=== PATIENT | male | born 1965 | race Caucasian/White ===

== ENCOUNTER 2020-06-04 21:26 | Observation (INO) | payer SELFPAY ==
[~2020-06-04] VITALS: Ht 177.8 cm; Wt 74.5 kg
--- NOTE | 2020-06-04 22:48 | PHYS DOC ---
Past Medical History Past Medical History: No Pertinent History Past Surgical History: Other Additional Past Surgical Histo: BROKEN NECK Smoking Status: Current Every Day Smoker Alcohol Use: None General Adult EDM: Chief Complaint: HAND PROBLEM HPI: HPI: Patient is a 54 year old male who presents with 4-day history of pain and swelling of the ring finger of the left upper extremity. Patient states that it started out as a pimple on the posterior surface of the hand. He squeezed it and the next day started to swell. Now he is having limited range of motion, severe pain, swelling, redness and drainage from that area. Patient denied any fever, chills did complain of some sweats today. He denied any nausea, vomiting or diarrhea, cough or shortness of breath, chest pain, recent illnesses including upper respiratory congestion postnasal drip sore throat, change in smell or taste. Review of Systems: Review of Systems: Constitutional: Denies fever or chills. [] Eyes: Denies change in visual acuity. [] HENT: Denies nasal congestion or sore throat. [] Respiratory: Denies cough or shortness of breath. [] Cardiovascular: Denies chest pain or edema. [] GI: Denies abdominal pain, nausea, vomiting, bloody stools or diarrhea. [] : Denies dysuria. [] Musculoskeletal: See HPI. [] Integument: Denies rash. [] Neurologic: Denies headache, focal weakness or sensory changes. [] Endocrine: Denies polyuria or polydipsia. [] Lymphatic: Denies swollen glands. [] Psychiatric: Denies depression or anxiety. [] Heart Score: Risk Factors: Risk Factors: DM, Current or recent (<one month) smoker, HTN, HLP, family history of CAD, obesity. Risk Scores: Score 0 - 3: 2.5% MACE over next 6 weeks - Discharge Home Score 4 - 6: 20.3% MACE over next 6 weeks - Admit for Clinical Observation Score 7 - 10: 72.7% MACE over next 6 weeks - Early Invasive Strategies Current Medications: Current Medications Medications (Trade) Dose Ordered Sig/Louie Start Time Stop Time Status Last Admin Dose Admin Ceftriaxone Sodium (Rocephin) 2 gm 1X ONCE 06/04/20 22:45 06/04/20 22:46 UNV Hydromorphone HCl (Dilaudid) 1 mg 1X ONCE 06/04/20 22:45 06/04/20 22:46 UNV Vancomycin HCl 1.75 gm/Sodium Chloride 500 ml @ 250 mls/hr 1X ONCE 06/04/20 22:45 06/05/20 00:44 UNV Physical Exam: PE: Constitutional: Well developed, well nourished, moderate pain distress, non- toxic appearance. [] HENT: Normocephalic, atraumatic, bilateral external ears normal, oropharynx moist, no oral exudates, nose normal. [] Eyes: PERRLA, EOMI, conjunctiva normal, no discharge. [] Neck: Normal range of motion, no tenderness, supple, no stridor. [] Cardiovascular:Heart rate regular rhythm, no murmur [] Lungs & Thorax: Bilateral breath sounds clear to auscultation [] Abdomen: Bowel sounds normal, soft, no tenderness, no masses, no pulsatile masses. [] Skin: Warm, dry, no erythema, no rash. [] Back: No tenderness, no CVA tenderness. [] Extremities: Unaffected limbs with full range of motion. Left upper extremity third digit with purulence involving mostly the skin of the proximal phalanx with dactylitis erythema and purulent appearing drainage. Tenderness with passive flexion of the flexor tendon was identified. Patient also has swelling of the left hand which does not seem to go above the forearm or wrist. The wrist itself has soft tissue swelling. I did not feel there was an effusion of the wrist. The left elbow had a small draining comedo with some associated erythema, no involvement of the olecranon bursa or elbow joint was identified. [] Neurologic: Alert and oriented X 3, normal motor function, normal sensory function, no focal deficits noted. [] Psychologic: Affect normal, judgement normal, mood normal. [] Current Patient Data: Vital Signs: Vital Signs Date Time Temp Pulse Resp B/P (MAP) Pulse Ox O2 Delivery O2 Flow Rate FiO2 06/04/20 22:04 97.9 103 20 140/99 (113) 98 Room Air 97.9 EKG: EKG: [] Radiology/Procedures: Radiology/Procedures: [] Course & Med Decision Making: Course & Med Decision Making Pertinent Labs and Imaging studies reviewed. (See chart for details) 5968-this appears to be a surgical emergency. Patient has infectious tenosynovitis of the hand. I discussed with him treatment plan, and the need for him to consider treatment transfer to . Call was made out to [facility] to the hand surgeon. 0340-CT scan results did finally come back. This did not indicate an abscess along the flexor tendon sheath ruling out infectious tenosynovitis. The hand surgeon at [facility] stated that I needed to drain the abscess and then no further intervention as long as there is nothing on the CAT scan. I did drain the abscess. Patient has been started on antibiotics. I will admit the patient for further treatment. Will consult wound care. Indication: abscess Procedure: The patient was positioned appropriately. Local anesthesia was not used. An incision was then made over the apex of the lesion and 10 mL of purulent material was expressed. A dressing was applied, the patients tetanus status updated as needed. The patient tolerated the procedure well. Complications: none. [] Dragon Disclaimer: Dragon Disclaimer: This electronic medical record was generated, in whole or in part, using a voice recognition dictation system. Departure Departure Impression: Primary Impression: Cellulitis of left hand Additional Impressions: Abscess of finger Qualified Codes: L02.512 - Cutaneous abscess of left hand SIRS (systemic inflammatory response syndrome) Hand pain, left Disposition: ADMITTED INPATIENT Condition: STABLE Justicifation of Admission Dx: Justifications for Admission: Justification of Admission Dx: Yes Sepsis: Infection NICOLE IBARRA MD Jun 04, 2020 22:48
[2020-06-04] MEDS ORDERED: cefTRIAXone IV Push 2 GM VIAL. IVP ONE (23:00)
[2020-06-04] MEDS ORDERED: HYDROmorphone 2 MG/ML VIAL IV ONE (23:00)
[2020-06-04] MEDS ORDERED: VANCOMYCIN 1.75 GM in IV NORMAL SALINE 500ML BAG 500 ML IV ONE (23:00)
[2020-06-04 23:12] LABS: BASO # 0.1 x10^3/uL (0.0-0.2); BASO % 1 % (0-3); EOS # 0.3 x10^3/uL (0.0-0.7); EOS % 2 % (0-3); HEMATOCRIT 39.8 % (39.0-53.0); HEMOGLOBIN 13.4 g/dL (13.0-17.5); LYMPH # 1.5 x10^3/uL (1.0-4.8); LYMPH % 12 % (24-48); MEAN CORPUSCULAR HEMOGLOBIN 30 pg (25-35); MEAN CORPUSCULAR HGB CONC 34 g/dL (31-37); MEAN CORPUSCULAR VOLUME 90 fL (79-100); MONO # 1.2 x10^3/uL (0.0-1.1); MONO % 9 % (0-9); NEUT # 9.7 x10^3/uL (1.8-7.7); NEUT % 76 % (31-73); PLATELET COUNT 278 x10^3/uL (140-400); RED BLOOD COUNT 4.43 x10^6/uL (4.30-5.70); RED CELL DISTRIBUTION WIDTH 14.1 % (11.5-14.5); WHITE BLOOD COUNT 12.7 x10^3/uL (4.0-11.0)
[2020-06-04 23:20] LABS: CALCIUM 7.7 mg/dL (8.5-10.1); CREATININE 0.9 mg/dL (0.7-1.3); GFR 88.6; POTASSIUM 3.7 mmol/L (3.5-5.1); PROTHROMBIN TIME PATIENT 13.1 SEC (11.7-14.0)
[2020-06-04 23:34] LABS: ALBUMIN/GLOBULIN RATIO 0.8 (1.0-1.7); TOTAL BILIRUBIN 0.2 mg/dL (0.2-1.0); TOTAL PROTEIN 6.8 g/dL (6.4-8.2)
[2020-06-05] MEDS ORDERED: IOHEXOL 300 MG/ML 100ML VIAL. IV ONE (00:30)
[2020-06-05] MEDS ORDERED: CONTRAST GIVEN. MC PRN (00:30)
--- NOTE | 2020-06-05 01:45 | RAD ---
CT left upper extremity with contrast PQRS statement: CT scans at this facility use dose reduction including either automated exposure control, iterative reconstructions, and /or weight based radiation dosing via mA and kV modification when appropriate to reduce radiation dose to as low as reasonably achievable. Contrast: 75 mL Omnipaque 300 intravenous contrast HISTORY: Infectious tenosynovitis, abscess and cellulitis of the left wrist and hand. FINDINGS: MR imaging has greater sensitivity to detect abscesses relative to CT imaging. No fracture or dislocation of the elbow, radius, ulna or carpal bones. No periostitis or lytic bone destruction to localize a potential site of osteomyelitis. The digits of the hand are outside the [id number] and are not fully evaluated. There is subcutaneous expansile soft tissue edema likely cellulitis along the dorsal and ulnar sided wrist and hand and distal forearm. There is no tendon sheath enhancement at the dorsal hand or wrist to confirm tenosynovitis although MR imaging has greater sensitivity for detection. No rim-enhancing soft tissue abscess evident. No enhancing mass. Mild reactive subcentimeter epitrochlear lymph node is noted. IMPRESSION: No abscess evident. No imaging features of osteomyelitis. No tendon sheath enhancement or obvious fluid to confirm tenosynovitis. Electronically signed by: Zach Watkins MD (06/05/2020 1:42 AM) [facility]
[2020-06-05] MEDS ORDERED: ONDANSETRON PF 4 MG/2 ML VIAL. IV PRN (04:00)
[2020-06-05] MEDS ORDERED: HYDROmorphone 2 MG/ML VIAL IV PRN (04:00)
[2020-06-05 04:47] VITALS: BP 115/60
--- NOTE | 2020-06-05 04:49 | NUR ---
Report was given to this RN by TEENA Torres in ED. pt. arrived on unit at 0435 by bed from ED. Patient is currently unable to answer many questions due to receiving pain medication before coming to the unit. RN will try to do this later on in the shift. Call light is within reach with bed in lowest position and bed alarm on for safety. Will continue to monitor.
[2020-06-05 07:00] VITALS: BP 106/62
[2020-06-05] MEDS ORDERED: VANCOMYCIN 2 GM in IV NORMAL SALINE 500ML BAG 500 ML IV ONE (07:00)
[2020-06-05] MEDS ORDERED: cefTRIAXone IV Push 2 GM VIAL. IVP SCH ×2 (09:00→23:00)
[2020-06-05] MEDS ORDERED: VANCOMYCIN 1.25 GM in IV NORMAL SALINE 250ML 250 ML IV SCH (09:00)
[2020-06-05] MEDS: VANCOMYCIN PER PHARMACY MC PRN (09:10)
--- NOTE | 2020-06-05 09:14 | NUR ---
Pharmacy Vancomycin Dosing Note S:Consulted to monitor and dose vancomycin started 06/04/20. O:ANTOINE BERMEO is a 54 year old M with Abscess Cellulitis . Height: 5 feet, 10 inches Weight: 74.5 kg Wever Body Weight: 73.00 Adjusted Body Weight: 73.60 Dosing Weight: Actual Other Antibiotics: Rocephin 2gm IVPB q24hrs LABS: Last BUN: 13 Last Creatinine: 0.9 Creatinine Clearance: 99 mL/min Last WBC: 12.7 Last Procalcitonin: Tmax (past 24 hours): 98.7 Microbiology: I/O: 500/ Drug Levels: Last level: on at Last dose given 06/04/20 at 2332 Vancomycin Dosing: Loading Dose: 1750 mg x1 Dosing Weight: Actual Target Trough: 15-20 A: Based on weight and CrCl: P: 1. Give Vancomycin 1750mg bolus, followed by Vancomycin 1250 mg IV q12h. 2. Follow up Trough level on 06/06/20 at 1030. 3. Pharmacy will continue to monitor, follow and adjust therapy as needed. Antoine Ferrera [facility], 06/05/20 0914
--- NOTE | 2020-06-05 09:34 | NUR ---
SW following. Discussed with RN, pt from home, room air, regular diet. Tox screen pending. ID consult. SW will continue to follow.
--- NOTE | 2020-06-05 10:00 | NUR ---
Wound Care Wound Type/Assessment: p Treatment Recommendations/Plan: Education provided: Offloading surface/device: Recommended Referrals/Tests: Discharge Recommendations for dressings:
--- NOTE | 2020-06-05 10:00 | NUR ---
Wound Care Wound Type/Assessment: patient seen per wound care consult. see wound assessment. patient has a left middle finger open incision/abscess, and a left elbow unknown/abscess wound. Treatment Recommendations/Plan: the wounds were cleaned, measured, pictured and redressed at this time. patients left middle finger recommendations of packing with 1/4" iodoform gauze packing with Xeroform gaze over with gauze and tape, change daily. recommendations of a telfa dressing to the left elbow, change daily. Recommended Referrals: Await Ortho recommendations. Discharge Recommendations for dressings: Continue with current recommendations, wound care will continue to f/ for changes.
[2020-06-05] MEDS ORDERED: CLIN300C8 PO (10:10)
--- NOTE | 2020-06-05 10:15 | PDOC1 ---
History and Physical Date of Admission Date of Admission DATE: 06/05/20 TIME: 10:11 Source Source: Chart review, Patient History of Present Illness History of Present Illness Mr. Marie, is a 54 year old male admit with hand and finger infection. He had a 4-day history of pain and swelling of the ring finger of the left upper extremity. he tried to express a small lesion himself and it got a lot worse over days. Now had acute limited range of motion, severe pain, swelling, redness and drainage from that area. ER attempted to transfer to for hand surgeon, CT was OK, then lanced the lesion in ER, reported 10mls purulent fluid out, pt reports feeling much better this AM, no event Past Medical History Cardiovascular: No pertinent hx Pulmonary: No pertinent hx GI: No pertinent hx Psych: No pertinent hx Past Surgical History Past Surgical History: No pertinent history Family History Family History: No Significant Social History Smoke: <1 pack per day ALCOHOL: rare Current Problem List Problem List Problems Medical Problems: (1) Abscess of finger Status: Acute (2) Cellulitis of left hand Status: Acute (3) Hand pain, left Status: Acute (4) SIRS (systemic inflammatory response syndrome) Status: Acute Current Medications Current Medications Current Medications Vancomycin HCl 1.75 gm/Sodium Chloride 500 ml @ 250 mls/hr 1X ONCE IV Last administered on 06/04/20at 23:32; Start 06/04/20 at 23:00; Stop 06/05/20 at 00:59; Status DC Ceftriaxone Sodium (Rocephin) 2 gm 1X ONCE IVP Last administered on 06/04/20at 23:32; Start 06/04/20 at 23:00; Stop 06/04/20 at 23:04; Status DC Hydromorphone HCl (Dilaudid) 1 mg 1X ONCE IV Last administered on 06/04/20at 23 :10; Start 06/04/20 at 23:00; Stop 06/04/20 at 23:04; Status DC Iohexol (Omnipaque 300 Mg/ml) 75 ml 1X ONCE IV ; Start 06/05/20 at 00:30; Stop 06/05/20 at 00:31; Status DC Info (CONTRAST GIVEN -- Rx MONITORING) 1 each PRN DAILY PRN MC SEE COMMENTS; Start 06/05/20 at 00:30; Stop 06/07/20 at 00:29 Ondansetron HCl (Zofran) 4 mg PRN Q8HRS PRN IV NAUSEA/VOMITING; Start 06/05/20 at 04:00; Stop 06/06/20 at 03:59 Hydromorphone HCl (Dilaudid) 1 mg PRN Q4HRS PRN IV SEVERE PAIN 7-10 Last administered on 06/05/20at 04:17; Start 06/05/20 at 04:00 Ceftriaxone Sodium (Rocephin) 2 gm Q24H IVP ; Start 06/05/20 at 09:00; Status Cancel Vancomycin HCl (Vanco Per Pharmacy) 1 each PRN DAILY PRN MC SEE COMMENTS Last administered on 06/05/20at 09:10; Start 06/05/20 at 06:45 Vancomycin HCl 2 gm/Sodium Chloride 500 ml @ 250 mls/hr 1X ONCE IV ; Start 06/05/20 at 07:00; Stop 06/05/20 at 08:59; Status Cancel Oxycodone/ Acetaminophen (Percocet 5/325) 1 tab PRN Q4HRS PRN PO PAIN; Start 06/05/20 at 08:45 Ceftriaxone Sodium (Rocephin) 2 gm Q24H IVP ; Start 06/05/20 at 23:00 Vancomycin HCl 1.25 gm/Sodium Chloride 250 ml @ 167 mls/hr Q12H IV ; Start 06/05/20 at 09:00; Status Cancel Vancomycin HCl 1.25 gm/Sodium Chloride 250 ml @ 167 mls/hr Q12H IV ; Start 06/05/20 at 11:00 Vancomycin HCl (Vancomycin Trough Level) 1 each 1X ONCE MC ; Start 06/06/20 at 10:30; Stop 06/06/20 at 10:31 Active Scripts Active Clindamycin Hcl 300 Mg Capsule 3 Cap PO TID 7 Days Reported No Known Medications Prior To Admisstion (Info) Each 1 Each MC 1-2XD Allergies Allergies: Coded Allergies: No Known Drug Allergies (Unverified , 06/04/20) ROS Review of System NO nausea, vomiting or diarrhea, cough or shortness of breath, chest pain, recent illnesses including upper respiratory congestion postnasal drip sore t hroat, change in smell or taste. General: YES: Chills PSYCHOLOGICAL ROS: No: Anxiety, Behavioral Disorder, Concentration difficultie, Decreased libido, Depression, Disorientation, Hallucinations, Hostility, Irrit ablity, Memory difficulties, Mood Swings, Obsessive thoughts, Physical abuse, Sexual abuse, Sleep disturbances, Suicidal ideation, Other Eyes: No Blurry vision, No Decreased vision, No Double vision, No Dry eyes, No Excessive tearing, No Eye Pain, No Itchy Eyes, No Loss of vision, No Photophobia, No Scotomata, No Uses contacts, No Uses glasses, No Other HEENT: YES: Heacaches Respiratory: No: Cough, Hemoptysis, Orthopnea, Pleuritic Pain, Shortness of breath, SOB with excertion, Sputum Changes, Stridor, Tachypnea, Wheezing, Other Cardiovascular: No Chest Pain, No Palpitations, No Orthopnea, No Paroxysmal Noc. Dyspnea, No Edema, No Lt Headedness, No Other Gastrointestinal: No Nausea, No Vomiting, No Abdominal Pain, No Diarrhea, No Constipation, No Melena, No Hematochezia, No Other Genitourinary: No Dysuria, No Frequency, No Incontinence, No Hematuria, No Retention, No Discharge, No Urgency, No Pain, No Flank Pain, No Other, No , No , No , No , No , No , No Musculoskeletal: Yes Joint Stiffness, Yes Joint Swelling, Yes Pain In: (hand and finger); No Gait Disturbance, No Joint Pain, No Muscle Pain, No Muscular Weakness, No Swelling In:, No Other Neurological: No Behavorial Changes, No Bowel/Bladder ControlChng, No Confusion, No Dizziness, No Gait Disturbance, No Headaches, No Impaired Coord/balance, No Memory Loss, No Numbness/Tingling, No Seizures, No Speech Problems, No Tremors, No Visual Changes, No Weakness, No Other Skin: No Dry Skin, No Eczema, No Hair Changes, No Lumps, No Mole Changes, No Mottling, No Nail Changes, No Pruritus, No Rash, No Skin Lesion Changes, No Other, No Acne Physical Exam General: Alert, Oriented X3, Cooperative HEENT: Atraumatic Heart: RRR Abdomen: Normal bowel sounds Extremities: No cyanosis, No edema, Other (left hand swollen, finger still bleeding, large open wound that will heal secondarily) Neuro: Normal speech, Normal tone Psych/Mental Status: Mental status NL, Mood NL Vitals Vitals Vital Signs Date Time Temp Pulse Resp B/P (MAP) Pulse Ox O2 Delivery O2 Flow Rate FiO2 06/05/20 07:00 98.7 93 18 106/62 (77) 97 Room Air 98.7 Labs Labs Laboratory Tests Test 06/04/20 23:00 White Blood Count 12.7 x10^3/uL (4.0-11.0) Red Blood Count 4.43 x10^6/uL (4.30-5.70) Hemoglobin 13.4 g/dL (13.0-17.5) Hematocrit 39.8 % (39.0-53.0) Mean Corpuscular Volume 90 fL (79-100) Mean Corpuscular Hemoglobin 30 pg (25-35) Mean Corpuscular Hemoglobin Concent 34 g/dL (31-37) Red Cell Distribution Width 14.1 % (11.5-14.5) Platelet Count 278 x10^3/uL (140-400) Neutrophils (%) (Auto) 76 % (31-73) Lymphocytes (%) (Auto) 12 % (24-48) Monocytes (%) (Auto) 9 % (0-9) Eosinophils (%) (Auto) 2 % (0-3) Basophils (%) (Auto) 1 % (0-3) Neutrophils # (Auto) 9.7 x10^3/uL (1.8-7.7) Lymphocytes # (Auto) 1.5 x10^3/uL (1.0-4.8) Monocytes # (Auto) 1.2 x10^3/uL (0.0-1.1) Eosinophils # (Auto) 0.3 x10^3/uL (0.0-0.7) Basophils # (Auto) 0.1 x10^3/uL (0.0-0.2) Prothrombin Time 13.1 SEC (11.7-14.0) Prothromb Time International Ratio 1.0 (0.8-1.1) Sodium Level 138 mmol/L (136-145) Potassium Level 3.7 mmol/L (3.5-5.1) Chloride Level 104 mmol/L (98-107) Carbon Dioxide Level 28 mmol/L (21-32) Anion Gap 6 (6-14) Blood Urea Nitrogen 13 mg/dL (8-26) Creatinine 0.9 mg/dL (0.7-1.3) Estimated GFR (Cockcroft-Gault) 88.6 BUN/Creatinine Ratio 14 (6-20) Glucose Level 111 mg/dL (70-99) Lactic Acid Level 1.2 mmol/L (0.4-2.0) Calcium Level 7.7 mg/dL (8.5-10.1) Total Bilirubin 0.2 mg/dL (0.2-1.0) Aspartate Amino Transf (AST/SGOT) 20 U/L (15-37) Alanine Aminotransferase (ALT/SGPT) 29 U/L (16-63) Alkaline Phosphatase 94 U/L (46-116) Total Protein 6.8 g/dL (6.4-8.2) Albumin 3.0 g/dL (3.4-5.0) Albumin/Globulin Ratio 0.8 (1.0-1.7) Laboratory Tests Test 06/04/20 23:00 White Blood Count 12.7 x10^3/uL (4.0-11.0) Red Blood Count 4.43 x10^6/uL (4.30-5.70) Hemoglobin 13.4 g/dL (13.0-17.5) Hematocrit 39.8 % (39.0-53.0) Mean Corpuscular Volume 90 fL (79-100) Mean Corpuscular Hemoglobin 30 pg (25-35) Mean Corpuscular Hemoglobin Concent 34 g/dL (31-37) Red Cell Distribution Width 14.1 % (11.5-14.5) Platelet Count 278 x10^3/uL (140-400) Neutrophils (%) (Auto) 76 % (31-73) Lymphocytes (%) (Auto) 12 % (24-48) Monocytes (%) (Auto) 9 % (0-9) Eosinophils (%) (Auto) 2 % (0-3) Basophils (%) (Auto) 1 % (0-3) Neutrophils # (Auto) 9.7 x10^3/uL (1.8-7.7) Lymphocytes # (Auto) 1.5 x10^3/uL (1.0-4.8) Monocytes # (Auto) 1.2 x10^3/uL (0.0-1.1) Eosinophils # (Auto) 0.3 x10^3/uL (0.0-0.7) Basophils # (Auto) 0.1 x10^3/uL (0.0-0.2) Prothrombin Time 13.1 SEC (11.7-14.0) Prothromb Time International Ratio 1.0 (0.8-1.1) Sodium Level 138 mmol/L (136-145) Potassium Level 3.7 mmol/L (3.5-5.1) Chloride Level 104 mmol/L (98-107) Carbon Dioxide Level 28 mmol/L (21-32) Anion Gap 6 (6-14) Blood Urea Nitrogen 13 mg/dL (8-26) Creatinine 0.9 mg/dL (0.7-1.3) Estimated GFR (Cockcroft-Gault) 88.6 BUN/Creatinine Ratio 14 (6-20) Glucose Level 111 mg/dL (70-99) Lactic Acid Level 1.2 mmol/L (0.4-2.0) Calcium Level 7.7 mg/dL (8.5-10.1) Total Bilirubin 0.2 mg/dL (0.2-1.0) Aspartate Amino Transf (AST/SGOT) 20 U/L (15-37) Alanine Aminotransferase (ALT/SGPT) 29 U/L (16-63) Alkaline Phosphatase 94 U/L (46-116) Total Protein 6.8 g/dL (6.4-8.2) Albumin 3.0 g/dL (3.4-5.0) Albumin/Globulin Ratio 0.8 (1.0-1.7) VTE Prophylaxis Ordered VTE Prophylaxis Devices: No VTE Pharmacological Prophylaxi: No Assessment/Plan Assessment/Plan left ring finger infection with abcess, I+D done in the ER, 10 mls fluid out, vanc and rocephin IV here, \\ tried to DC on PO abx arm area did not look much better with another dose of abx andtime, cont IV abx consult ortho, wound care, MERCEDEZ HAMPTON MD Jun 05, 2020 10:15
[2020-06-05 11:00] VITALS: BP 113/64
[2020-06-05] MEDS: VANCOMYCIN 1.25 GM in IV NORMAL SALINE 250ML 250 ML IV SCH ×2 (11:21→23:58)
--- NOTE | 2020-06-05 12:25 | PDOC2 ---
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 He has been receiving wound care and antibiotics but still has pain swelling and erythema. The finger is somewhat worse with activity. He denies numbness or tingling. He does not have any loss of tendon function. He stated that he believes these abscesses/infections were caused by bug bites. Past Medical History Cardiovascular: No pertinent hx Pulmonary: No pertinent hx GI: No pertinent hx Psych: No pertinent hx Past Surgical History Past Surgical History: No pertinent history Family History Family History: No Significant Social History <1 pack per day ALCOHOL: rare Current Problem List Problem List Problems Medical Problems: (1) Abscess of finger Status: Acute (2) Cellulitis of left hand Status: Acute (3) Hand pain, left Status: Acute (4) SIRS (systemic inflammatory response syndrome) Status: Acute Current Medications Current Medications Current Medications Vancomycin HCl 1.75 gm/Sodium Chloride 500 ml @ 250 mls/hr 1X ONCE IV Last administered on 06/04/20at 23:32; Start 06/04/20 at 23:00; Stop 06/05/20 at 00:59; Status DC Ceftriaxone Sodium (Rocephin) 2 gm 1X ONCE IVP Last administered on 06/04/20at 23:32; Start 06/04/20 at 23:00; Stop 06/04/20 at 23:04; Status DC Hydromorphone HCl (Dilaudid) 1 mg 1X ONCE IV Last administered on 06/04/20at 23:10; Start 06/04/20 at 23:00; Stop 06/04/20 at 23:04; Status DC Iohexol (Omnipaque 300 Mg/ml) 75 ml 1X ONCE IV ; Start 06/05/20 at 00:30; Stop 06/05/20 at 00:31; Status DC Info (CONTRAST GIVEN -- Rx MONITORING) 1 each PRN DAILY PRN MC SEE COMMENTS; Start 06/05/20 at 00:30; Stop 06/07/20 at 00:29 Ondansetron HCl (Zofran) 4 mg PRN Q8HRS PRN IV NAUSEA/VOMITING; Start 06/05/20 at 04:00; Stop 06/06/20 at 03:59 Hydromorphone HCl (Dilaudid) 1 mg PRN Q4HRS PRN IV SEVERE PAIN 7-10 Last administered on 06/05/20at 04:17; Start 06/05/20 at 04:00 Ceftriaxone Sodium (Rocephin) 2 gm Q24H IVP ; Start 06/05/20 at 09:00; Status Cancel Vancomycin HCl (Vanco Per Pharmacy) 1 each PRN DAILY PRN MC SEE COMMENTS Last administered on 06/05/20at 09:10; Start 06/05/20 at 06:45 Vancomycin HCl 2 gm/Sodium Chloride 500 ml @ 250 mls/hr 1X ONCE IV ; Start 06/05/20 at 07:00; Stop 06/05/20 at 08:59; Status Cancel Oxycodone/ Acetaminophen (Percocet 5/325) 1 tab PRN Q4HRS PRN PO PAIN; Start 06/05/20 at 08:45 Ceftriaxone Sodium (Rocephin) 2 gm Q24H IVP ; Start 06/05/20 at 23:00; Stop 06/05/20 at 12:00; Status DC Vancomycin HCl 1.25 gm/Sodium Chloride 250 ml @ 167 mls/hr Q12H IV ; Start 06/05/20 at 09:00; Status Cancel Vancomycin HCl 1.25 gm/Sodium Chloride 250 ml @ 167 mls/hr Q12H IV Last administered on 06/05/20at 11:21; Start 06/05/20 at 11:00 Vancomycin HCl (Vancomycin Trough Level) 1 each 1X ONCE MC ; Start 06/06/20 at 10:30; Stop 06/06/20 at 10:31 Lactobacillus Rhamnosus (Culturelle) 1 cap BID PO ; Start 06/05/20 at 21:00 Azithromycin (Zithromax) 500 mg 1X ONCE PO ; Start 06/05/20 at 12:30; Stop 06/05/20 at 12:31 Azithromycin (Zithromax) 250 mg DAILY PO ; Start 06/06/20 at 09:00 Active Scripts Active Clindamycin Hcl 300 Mg Capsule 3 Cap PO TID 7 Days Reported No Known Medications Prior To Admisstion (Info) Each 1 Each 1-2XD Allergies Allergies: Coded Allergies: No Known Drug Allergies (Unverified , 06/04/20) ROS Review of System NO nausea, vomiting or diarrhea, cough or shortness of breath, chest pain, recent illnesses including upper respiratory congestion postnasal drip sore throat, change in smell or taste. General: YES: Chills PSYCHOLOGICAL ROS: No: Anxiety, Behavioral Disorder, Concentration difficultie, Decreased libido, Depression, Disorientation, Hallucinations, Hostility, Irritablity, Memory difficulties, Mood Swings, Obsessive thoughts, Physical abuse, Sexual abuse, Sleep disturbances, Suicidal ideation, Other Eyes: No Blurry vision, No Decreased vision, No Double vision, No Dry eyes, No Excessive tearing, No Eye Pain, No Itchy Eyes, No Loss of vision, No Photophobia, No Scotomata, No Uses contacts, No Uses glasses, No Other HEENT: YES: Heacaches Respiratory: No: Cough, Hemoptysis, Orthopnea, Pleuritic Pain, Shortness of breath, SOB with excertion, Sputum Changes, Stridor, Tachypnea, Wheezing, Other Cardiovascular: No Chest Pain, No Palpitations, No Orthopnea, No Paroxysmal Noc. Dyspnea, No Edema, No Lt Headedness, No Other Gastrointestinal: No Nausea, No Vomiting, No Abdominal Pain, No Diarrhea, No Constipation, No Melena, No Hematochezia, No Other Genitourinary: No Dysuria, No Frequency, No Incontinence, No Hematuria, No Retention, No Discharge, No Urgency, No Pain, No Flank Pain, No Other, No , No , No , No , No , No , No Musculoskeletal: Yes Joint Stiffness, Yes Joint Swelling, Yes Pain In: (hand and finger); No Gait Disturbance, No Joint Pain, No Muscle Pain, No Muscular Weakness, No Swelling In:, No Other Neurological: No Behavorial Changes, No Bowel/Bladder ControlChng, No Confusion, No Dizziness, No Gait Disturbance, No Headaches, No Impaired Coord/balance, No Memory Loss, No Numbness/Tingling, No Seizures, No Speech Problems, No Tremors, No Visual Changes, No Weakness, No Other Skin: No Dry Skin, No Eczema, No Hair Changes, No Lumps, No Mole Changes, No Mottling, No Nail Changes, No Pruritus, No Rash, No Skin Lesion Changes, No Other, No Acne Physical Exam General: Alert, Cooperative, Other (poor dentition) HEENT: Atraumatic Lungs: Normal air movement Heart: Regular rate Abdomen: Normal bowel sounds Extremities: Other (The left long finger has dorsal swelling erythema tenderness and fluctuance. There is an open wound and purulent drainage. There is some packing in the open wound. He still has maintained posture of the finger without obvious tendon dysfunction, and I had him flex and extend the long finger slightly and there does not seem to be any loss of the extensor or flexor tendon. There is no sausage digit swelling or other evidence of flexor Terri synovitis. He is nontender on the flexor aspect. The light touch sensation is intact at the fingertip. The left elbow has bursal type swelling, purulent drainage, erythema, tenderness warmth and fluctuance.) Skin: Other (Open wounds left long finger and left elbow as above with purulent drainage.) Vitals VITALS Vital Signs Date Time Temp Pulse Resp B/P (MAP) Pulse Ox O2 Delivery O2 Flow Rate FiO2 06/05/20 11:00 98.6 89 18 113/64 (80) 96 Room Air 98.6 Labs Labs Laboratory Tests Test 06/04/20 23:00 White Blood Count 12.7 x10^3/uL (4.0-11.0) Red Blood Count 4.43 x10^6/uL (4.30-5.70) Hemoglobin 13.4 g/dL (13.0-17.5) Hematocrit 39.8 % (39.0-53.0) Mean Corpuscular Volume 90 fL (79-100) Mean Corpuscular Hemoglobin 30 pg (25-35) Mean Corpuscular Hemoglobin Concent 34 g/dL (31-37) Red Cell Distribution Width 14.1 % (11.5-14.5) Platelet Count 278 x10^3/uL (140-400) Neutrophils (%) (Auto) 76 % (31-73) Lymphocytes (%) (Auto) 12 % (24-48) Monocytes (%) (Auto) 9 % (0-9) Eosinophils (%) (Auto) 2 % (0-3) Basophils (%) (Auto) 1 % (0-3) Neutrophils # (Auto) 9.7 x10^3/uL (1.8-7.7) Lymphocytes # (Auto) 1.5 x10^3/uL (1.0-4.8) Monocytes # (Auto) 1.2 x10^3/uL (0.0-1.1) Eosinophils # (Auto) 0.3 x10^3/uL (0.0-0.7) Basophils # (Auto) 0.1 x10^3/uL (0.0-0.2) Prothrombin Time 13.1 SEC (11.7-14.0) Prothromb Time International Ratio 1.0 (0.8-1.1) Sodium Level 138 mmol/L (136-145) Potassium Level 3.7 mmol/L (3.5-5.1) Chloride Level 104 mmol/L (98-107) Carbon Dioxide Level 28 mmol/L (21-32) Anion Gap 6 (6-14) Blood Urea Nitrogen 13 mg/dL (8-26) Creatinine 0.9 mg/dL (0.7-1.3) Estimated GFR (Cockcroft-Gault) 88.6 BUN/Creatinine Ratio 14 (6-20) Glucose Level 111 mg/dL (70-99) Lactic Acid Level 1.2 mmol/L (0.4-2.0) Calcium Level 7.7 mg/dL (8.5-10.1) Total Bilirubin 0.2 mg/dL (0.2-1.0) Aspartate Amino Transf (AST/SGOT) 20 U/L (15-37) Alanine Aminotransferase (ALT/SGPT) 29 U/L (16-63) Alkaline Phosphatase 94 U/L (46-116) Total Protein 6.8 g/dL (6.4-8.2) Albumin 3.0 g/dL (3.4-5.0) Albumin/Globulin Ratio 0.8 (1.0-1.7) Laboratory Tests Test 06/04/20 23:00 White Blood Count 12.7 x10^3/uL (4.0-11.0) Red Blood Count 4.43 x10^6/uL (4.30-5.70) Hemoglobin 13.4 g/dL (13.0-17.5) Hematocrit 39.8 % (39.0-53.0) Mean Corpuscular Volume 90 fL (79-100) Mean Corpuscular Hemoglobin 30 pg (25-35) Mean Corpuscular Hemoglobin Concent 34 g/dL (31-37) Red Cell Distribution Width 14.1 % (11.5-14.5) Platelet Count 278 x10^3/uL (140-400) Neutrophils (%) (Auto) 76 % (31-73) Lymphocytes (%) (Auto) 12 % (24-48) Monocytes (%) (Auto) 9 % (0-9) Eosinophils (%) (Auto) 2 % (0-3) Basophils (%) (Auto) 1 % (0-3) Neutrophils # (Auto) 9.7 x10^3/uL (1.8-7.7) Lymphocytes # (Auto) 1.5 x10^3/uL (1.0-4.8) Monocytes # (Auto) 1.2 x10^3/uL (0.0-1.1) Eosinophils # (Auto) 0.3 x10^3/uL (0.0-0.7) Basophils # (Auto) 0.1 x10^3/uL (0.0-0.2) Prothrombin Time 13.1 SEC (11.7-14.0) Prothromb Time International Ratio 1.0 (0.8-1.1) Sodium Level 138 mmol/L (136-145) Potassium Level 3.7 mmol/L (3.5-5.1) Chloride Level 104 mmol/L (98-107) Carbon Dioxide Level 28 mmol/L (21-32) Anion Gap 6 (6-14) Blood Urea Nitrogen 13 mg/dL (8-26) Creatinine 0.9 mg/dL (0.7-1.3) Estimated GFR (Cockcroft-Gault) 88.6 BUN/Creatinine Ratio 14 (6-20) Glucose Level 111 mg/dL (70-99) Lactic Acid Level 1.2 mmol/L (0.4-2.0) Calcium Level 7.7 mg/dL (8.5-10.1) Total Bilirubin 0.2 mg/dL (0.2-1.0) Aspartate Amino Transf (AST/SGOT) 20 U/L (15-37) Alanine Aminotransferase (ALT/SGPT) 29 U/L (16-63) Alkaline Phosphatase 94 U/L (46-116) Total Protein 6.8 g/dL (6.4-8.2) Albumin 3.0 g/dL (3.4-5.0) Albumin/Globulin Ratio 0.8 (1.0-1.7) Images Images [facility] [address] [address] IMAGING REPORT Signed PATIENT: LEONEL BERMEO ACCOUNT: [id number] : 1965 LOCATION: ER AGE: 54 SEX: M EXAM STATUS: REG ER ORD. PHYSICIAN: NICOLE IBARRA MD REASON: Infectious tenosynovitis versus abscess and cellulitis of the hand PROCEDURE: CT UPPER EXTREMTY W/CONTRST LT CT left upper extremity with contrast PQRS statement: CT scans at this facility use dose reduction including either automated exposure control, iterative reconstructions, and /or weight based radiation dosing via mA and kV modification when appropriate to reduce radiation dose to as low as reasonably achievable. Contrast: 75 mL Omnipaque 300 intravenous contrast HISTORY: Infectious tenosynovitis, abscess and cellulitis of the left wrist and hand. FINDINGS: MR imaging has greater sensitivity to detect abscesses relative to CT imaging. No fracture or dislocation of the elbow, radius, ulna or carpal bones. No periostitis or lytic bone destruction to localize a potential site of osteomyelitis. The digits of the hand are outside the [id number] and are not fully evaluated. There is subcutaneous expansile soft tissue edema likely cellulitis along the dorsal and ulnar sided wrist and hand and distal forearm. There is no tendon sheath enhancement at the dorsal hand or wrist to confirm tenosynovitis although MR imaging has greater sensitivity for detection. No rim-enhancing soft tissue abscess evident. No enhancing mass. Mild reactive subcentimeter epitrochlear lymph node is noted. IMPRESSION: No abscess evident. No imaging features of osteomyelitis. No tendon sheath enhancement or obvious fluid to confirm tenosynovitis. Electronically signed by: Gigi Watkins MD (06/05/2020 1:42 AM) [facility] [place] DICTATED and SIGNED BY: GIGI WATKINS MD DATE: 06/05/20 0142 Assessment/Plan Assessment/Plan He has purulent drainage from the left long finger and the left elbow. These would benefit from surgical drainage. I will plan surgery today. ALEJANDRA MIRANDA MD Jun 05, 2020 12:25
[2020-06-05] MEDS ORDERED: AZITHROMYCIN 250 MG TABLET. PO ONE (12:30)
[2020-06-05] MEDS: oxyCODONE/APAP 5/325 1 TAB TABLET PO PRN ×2 (13:51→20:41)
[2020-06-05 15:00] VITALS: BP 115/68
[2020-06-05 19:00] VITALS: BP 117/78
[2020-06-05] MEDS: LACTOBACILLUS RHAMNOSUS GG 1 CAPSULE. PO SCH (20:41)
--- NOTE | 2020-06-05 22:57 | NUR ---
Only change for a positive sepsis screen has been the elevated heart rate. Patient got 2 blood cultures drawn this morning in the ER and antibiotics have been restarted. Lactic was also within normal limits. ICU sepsis RN did not see a reason to redraw new blood cultures if patient hasn't been here for too long. Will continue to monitor.
[2020-06-05 23:00] VITALS: BP 128/82
[2020-06-06] VITALS (9 sets, daily range): BP systolic 107–140; BP diastolic 65–89
[2020-06-06 05:12] LABS: BARBITURATES NEG (NEG); BENZODIAZEPINES NEG (NEG); CANNABINOIDS NEG (NEG); COCAINE NEG (NEG); METHADONE NEG (NEG); OPIATES NEG (NEG); PHENCYCLIDINE NEG (NEG)
[2020-06-06 05:13] LABS: AMPHETAMINE/METHAMPHETAMINE POS (NEG)
[2020-06-06] MEDS: oxyCODONE/APAP 5/325 1 TAB TABLET PO PRN ×2 (05:18→20:05)
[2020-06-06] MEDS: AZITHROMYCIN 250 MG TABLET. PO SCH (08:07)
[2020-06-06] MEDS: LACTOBACILLUS RHAMNOSUS GG 1 CAPSULE. PO SCH ×2 (08:07→20:04)
--- NOTE | 2020-06-06 10:19 | NUR ---
SW following. Discussed with RN, pt from home. Pt positive for meth - BELINDA consulted. Possible surgery - [facility] apparently declined transfer. BERNICE will continue to follow. Addendum: 06/06/20 at 1219 by ERICKA QUEEN Mami (BELINDA) met with pt, pt at first denied any meth use, then later stated "I've taken a hit here or there off meth pipe." Pt provided with resources for substance use treatments and mental health for history of mild depression. Denies IV meth use, even though has abscesses which per Mami look to be possibly related to IV use. Plans for surgery. BERNICE will continue to follow.
[2020-06-06] MEDS ORDERED: IV RINGERS,LACTATED 1000ML 1,000 ML IV SCH (10:53)
[2020-06-06] MEDS ORDERED: MORPHINE SULFATE 2 MG/ML VIAL. IV PRN (11:00)
[2020-06-06] MEDS ORDERED: HYDROmorphone 2 MG/ML VIAL IV PRN (11:00)
[2020-06-06] MEDS ORDERED: PROCHLORPERAZINE 10 MG/2 ML VIAL. IV PRN (11:00)
[2020-06-06] MEDS ORDERED: fentaNYL PF VIAL 100 MCG/2 ML VIAL IV PRN (11:00)
[2020-06-06 11:42] LABS: CREATININE 0.9 mg/dL (0.7-1.3); GFR 88.6
[2020-06-06 11:49] LABS: VANC TR 10.1 mcg/mL (10.0-20.0)
[2020-06-06] MEDS: VANCOMYCIN 1.25 GM in IV NORMAL SALINE 250ML 250 ML IV SCH ×2 (12:39→23:22)
--- NOTE | 2020-06-06 13:17 | PDOC ---
PROGRESS NOTES Date of Service: DATE: 06/06/20 TIME: 13:16 Chief Complaint Chief Complaint left ring finger infection with abcess, I+D done in the ER, vanc and rocephin IV here, abcess on other arm, cellulitis tobacco use Vitals Vitals Vital Signs Date Time Temp Pulse Resp B/P (MAP) Pulse Ox O2 Delivery O2 Flow Rate FiO2 06/06/20 11:00 97.8 76 18 124/86 (99) 96 Room Air 97.8 Physical Exam General: Alert, Cooperative, Other (poor dentition) Heart: Regular rate Abdomen: Normal bowel sounds Extremities: No cyanosis, Other (The left long finger has dorsal swelling erythema tenderness and fluctuance. There is an open wound and purulent drainage. There is some packing in the open wound. He still has maintained posture of the finger without obvious tendon dysfunction, and I had him flex and extend the long finger slightly and there does not seem to be any loss of the extensor or flexor tendon. There is no sausage digit swelling or other evidence of flexor Terri synovitis. He is nontender on the flexor aspect. The light touch sensation is intact at the fingertip. The left elbow has bursal type swelling, purulent drainage, erythema, tenderness warmth and fluctuance.) Skin: No breakdown, Other (Open wounds left long finger and left elbow as above with purulent drainage.) Labs LABS Laboratory Tests Test 06/06/20 04:55 06/06/20 10:58 06/06/20 11:18 Urine Opiates Screen Neg (NEG) Urine Methadone Screen Neg (NEG) Urine Barbiturates Neg (NEG) Urine Phencyclidine Screen Neg (NEG) Urine Amphetamine/Methamphetamine Pos (NEG) Urine Benzodiazepines Screen Neg (NEG) Urine Cocaine Screen Neg (NEG) Urine Cannabinoids Screen Neg (NEG) Urine Ethyl Alcohol Neg (NEG) SARS-CoV-2 Antigen (Rapid) Negative (NEGATIVE) Creatinine 0.9 mg/dL (0.7-1.3) Estimated GFR (Cockcroft-Gault) 88.6 Vancomycin Level Trough 10.1 mcg/mL (10.0-20.0) Vancomycin Last Dose Date 06/05/20 Vancomycin Last Dose Time 2300 Assessment and Plan Assessmemt and Plan Problems Medical Problems: (1) Abscess of finger Status: Acute (2) Cellulitis of left hand Status: Acute (3) Hand pain, left Status: Acute (4) SIRS (systemic inflammatory response syndrome) Status: Acute Comment Review of Relevant I have reviewed the following items ruben (where applicable) has been applied. Labs Laboratory Tests Test 06/04/20 23:00 06/06/20 04:55 06/06/20 10:58 06/06/20 11:18 White Blood Count 12.7 x10^3/uL (4.0-11.0) Red Blood Count 4.43 x10^6/uL (4.30-5.70) Hemoglobin 13.4 g/dL (13.0-17.5) Hematocrit 39.8 % (39.0-53.0) Mean Corpuscular Volume 90 fL (79-100) Mean Corpuscular Hemoglobin 30 pg (25-35) Mean Corpuscular Hemoglobin Concent 34 g/dL (31-37) Red Cell Distribution Width 14.1 % (11.5-14.5) Platelet Count 278 x10^3/uL (140-400) Neutrophils (%) (Auto) 76 % (31-73) Lymphocytes (%) (Auto) 12 % (24-48) Monocytes (%) (Auto) 9 % (0-9) Eosinophils (%) (Auto) 2 % (0-3) Basophils (%) (Auto) 1 % (0-3) Neutrophils # (Auto) 9.7 x10^3/uL (1.8-7.7) Lymphocytes # (Auto) 1.5 x10^3/uL (1.0-4.8) Monocytes # (Auto) 1.2 x10^3/uL (0.0-1.1) Eosinophils # (Auto) 0.3 x10^3/uL (0.0-0.7) Basophils # (Auto) 0.1 x10^3/uL (0.0-0.2) Prothrombin Time 13.1 SEC (11.7-14.0) Prothromb Time International Ratio 1.0 (0.8-1.1) Sodium Level 138 mmol/L (136-145) Potassium Level 3.7 mmol/L (3.5-5.1) Chloride Level 104 mmol/L (98-107) Carbon Dioxide Level 28 mmol/L (21-32) Anion Gap 6 (6-14) Blood Urea Nitrogen 13 mg/dL (8-26) Creatinine 0.9 mg/dL (0.7-1.3) 0.9 mg/dL (0.7-1.3) Estimated GFR (Cockcroft-Gault) 88.6 88.6 BUN/Creatinine Ratio 14 (6-20) Glucose Level 111 mg/dL (70-99) Lactic Acid Level 1.2 mmol/L (0.4-2.0) Calcium Level 7.7 mg/dL (8.5-10.1) Total Bilirubin 0.2 mg/dL (0.2-1.0) Aspartate Amino Transf (AST/SGOT) 20 U/L (15-37) Alanine Aminotransferase (ALT/SGPT) 29 U/L (16-63) Alkaline Phosphatase 94 U/L (46-116) Total Protein 6.8 g/dL (6.4-8.2) Albumin 3.0 g/dL (3.4-5.0) Albumin/Globulin Ratio 0.8 (1.0-1.7) Urine Opiates Screen Neg (NEG) Urine Methadone Screen Neg (NEG) Urine Barbiturates Neg (NEG) Urine Phencyclidine Screen Neg (NEG) Urine Amphetamine/Methamphetamine Pos (NEG) Urine Benzodiazepines Screen Neg (NEG) Urine Cocaine Screen Neg (NEG) Urine Cannabinoids Screen Neg (NEG) Urine Ethyl Alcohol Neg (NEG) SARS-CoV-2 Antigen (Rapid) Negative (NEGATIVE) Vancomycin Level Trough 10.1 mcg/mL (10.0-20.0) Vancomycin Last Dose Date 06/05/20 Vancomycin Last Dose Time 2300 Laboratory Tests Test 06/06/20 04:55 06/06/20 10:58 06/06/20 11:18 Urine Opiates Screen Neg (NEG) Urine Methadone Screen Neg (NEG) Urine Barbiturates Neg (NEG) Urine Phencyclidine Screen Neg (NEG) Urine Amphetamine/Methamphetamine Pos (NEG) Urine Benzodiazepines Screen Neg (NEG) Urine Cocaine Screen Neg (NEG) Urine Cannabinoids Screen Neg (NEG) Urine Ethyl Alcohol Neg (NEG) SARS-CoV-2 Antigen (Rapid) Negative (NEGATIVE) Creatinine 0.9 mg/dL (0.7-1.3) Estimated GFR (Cockcroft-Gault) 88.6 Vancomycin Level Trough 10.1 mcg/mL (10.0-20.0) Vancomycin Last Dose Date 06/05/20 Vancomycin Last Dose Time 2300 Microbiology 06/04/20 Blood Culture - Preliminary, Resulted NO GROWTH AFTER 1 DAY Medications Current Medications Vancomycin HCl 1.75 gm/Sodium Chloride 500 ml @ 250 mls/hr 1X ONCE IV Last administered on 06/04/20at 23:32; Start 06/04/20 at 23:00; Stop 06/05/20 at 00:59; Status DC Ceftriaxone Sodium (Rocephin) 2 gm 1X ONCE IVP Last administered on 06/04/20at 23:32; Start 06/04/20 at 23:00; Stop 06/04/20 at 23:04; Status DC Hydromorphone HCl (Dilaudid) 1 mg 1X ONCE IV Last administered on 06/04/20at 23:10; Start 06/04/20 at 23:00; Stop 06/04/20 at 23:04; Status DC Iohexol (Omnipaque 300 Mg/ml) 75 ml 1X ONCE IV ; Start 06/05/20 at 00:30; Stop 06/05/20 at 00:31; Status DC Info (CONTRAST GIVEN -- Rx MONITORING) 1 each PRN DAILY PRN MC SEE COMMENTS; Start 06/05/20 at 00:30; Stop 06/07/20 at 00:29 Ondansetron HCl (Zofran) 4 mg PRN Q8HRS PRN IV NAUSEA/VOMITING; Start 06/05/20 at 04:00; Stop 06/06/20 at 03:59; Status DC Hydromorphone HCl (Dilaudid) 1 mg PRN Q4HRS PRN IV SEVERE PAIN 7-10 Last administered on 06/05/20at 04:17; Start 06/05/20 at 04:00 Ceftriaxone Sodium (Rocephin) 2 gm Q24H IVP ; Start 06/05/20 at 09:00; Status Cancel Vancomycin HCl (Vanco Per Pharmacy) 1 each PRN DAILY PRN MC SEE COMMENTS Last administered on 06/05/20at 09:10; Start 06/05/20 at 06:45 Vancomycin HCl 2 gm/Sodium Chloride 500 ml @ 250 mls/hr 1X ONCE IV ; Start 06/05/20 at 07:00; Stop 06/05/20 at 08:59; Status Cancel Oxycodone/ Acetaminophen (Percocet 5/325) 1 tab PRN Q4HRS PRN PO PAIN Last administered on 06/06/20at 05:18; Start 06/05/20 at 08:45 Ceftriaxone Sodium (Rocephin) 2 gm Q24H IVP ; Start 06/05/20 at 23:00; Stop 06/05/20 at 12:00; Status DC Vancomycin HCl 1.25 gm/Sodium Chloride 250 ml @ 167 mls/hr Q12H IV ; Start 06/05/20 at 09:00; Status Cancel Vancomycin HCl 1.25 gm/Sodium Chloride 250 ml @ 167 mls/hr Q12H IV Last administered on 06/06/20at 12:39; Start 06/05/20 at 11:00 Vancomycin HCl (Vancomycin Trough Level) 1 each 1X ONCE MC ; Start 06/06/20 at 10:30; Stop 06/06/20 at 10:31; Status DC Lactobacillus Rhamnosus (Culturelle) 1 cap BID PO Last administered on 06/06/20at 08:07; Start 06/05/20 at 21:00 Azithromycin (Zithromax) 500 mg 1X ONCE PO Last administered on 06/05/20at 13:51; Start 06/05/20 at 12:30; Stop 06/05/20 at 12:31; Status DC Azithromycin (Zithromax) 250 mg DAILY PO Last administered on 06/06/20at 08:07; Start 06/06/20 at 09:00 Fentanyl Citrate (Fentanyl 2ml Vial) 25 mcg PRN Q5MIN PRN IV MILD PAIN 1-3; Start 06/06/20 at 11:00; Stop 06/07/20 at 10:59 Fentanyl Citrate (Fentanyl 2ml Vial) 50 mcg PRN Q5MIN PRN IV MODERATE TO SEVERE PAIN; Start 06/06/20 at 11:00; Stop 06/07/20 at 10:59 Morphine Sulfate (Morphine Sulfate) 1 mg PRN Q10MIN PRN IV SEVERE PAIN 7-10; Start 06/06/20 at 11:00; Stop 06/07/20 at 10:59 Ringer's Solution 1,000 ml @ 30 mls/hr Q24H IV ; Start 06/06/20 at 10:53; Stop 06/06/20 at 22:52 Hydromorphone HCl (Dilaudid) 0.5 mg PRN Q10MIN PRN IV SEV PAIN, Second choice; Start 06/06/20 at 11:00; Stop 06/07/20 at 10:59 Prochlorperazine Edisylate (Compazine) 5 mg PACU PRN PRN IV NAUSEA, MRX1; Start 06/06/20 at 11:00; Stop 06/07/20 at 10:59 Active Scripts Active Clindamycin Hcl 300 Mg Capsule 3 Cap PO TID 7 Days Reported No Known Medications Prior To Admisstion (Info) Each 1 Each 1-2XD Vitals/I & O Vital Sign - Last 24 Hours 06/05/20 06/05/20 06/05/20 06/05/20 13:51 14:51 15:00 19:00 Temp 98.6 98.7 98.6 98.7 Pulse 87 109 Resp 18 18 B/P (MAP) 115/68 (84) 117/78 (91) Pulse Ox 96 99 O2 Delivery Room Air Room Air Room Air Room Air 06/05/20 06/05/20 06/05/20 06/05/20 20:00 20:41 21:41 23:00 Temp 98.4 98.4 Pulse 85 Resp 18 B/P (MAP) 128/82 (97) Pulse Ox 98 O2 Delivery Room Air Room Air Room Air Room Air 06/06/20 06/06/20 06/06/20 06/06/20 03:00 05:18 06:24 07:00 Temp 97.8 98.4 97.8 98.4 Pulse 85 78 Resp 18 16 B/P (MAP) 140/85 (103) 122/89 (100) Pulse Ox 98 94 O2 Delivery Room Air Room Air Room Air Room Air 06/06/20 06/06/20 08:00 11:00 Temp 97.8 97.8 Pulse 76 Resp 18 B/P (MAP) 124/86 (99) Pulse Ox 96 O2 Delivery Room Air Room Air Intake and Output 06/05/20 06/05/20 06/06/20 15:00 23:00 07:00 Intake Total 540 ml 250 ml Output Total 400 ml Balance 540 ml 250 ml -400 ml Justicifation of Admission Dx: Justifications for Admission: Justification of Admission Dx: Yes Sepsis: Infection MERCEDEZ HAMPTON MD Jun 06, 2020 13:17
[2020-06-06] MEDS: VANCOMYCIN PER PHARMACY MC PRN (13:51)
--- NOTE | 2020-06-06 13:51 | NUR ---
Pharmacy Vancomycin Dosing Note S:Consulted to monitor and dose vancomycin started 06/04/20. O:LEONEL BERMEO is a 54 year old M with Abscess Cellulitis . Height: 5 feet, 10 inches Weight: 74.5 kg [place] Body Weight: 73.00 Adjusted Body Weight: 73.60 Dosing Weight: Actual Other Antibiotics: Zithromax 250mg po daily Rocephin 2gm IVPB q24hrs (06/05) LABS: Last BUN: 13 Last Creatinine: 0.9 Creatinine Clearance: 99 mL/min Last WBC: 12.7 Last Procalcitonin: Tmax (past 24 hours): 98.4 Microbiology: I/O: 790/400 Drug Levels: Last Trough level: 10.1 on 06/06/20 at 1118 Last dose given 06/05/20 at 2358 Vancomycin Dosing: Loading Dose: 1750 mg x1 Dosing Weight: Actual Target Trough: 10-20 A: Based on: Therapeutic trough P: 1. Continue Vancomycin 1250 mg IV q12h 2. Follow up Trough level as needed. 3. Pharmacy will continue to monitor, follow and adjust therapy as needed. KENIA MEA RPH, 06/06/20 [id number]
[2020-06-06] MEDS ORDERED: fentaNYL PF VIAL 100 MCG/2 ML VIAL ONE ×2 (15:09→17:03)
[2020-06-06] MEDS ORDERED: PROPOFOL 10 MG/ML (20ML) VIAL. IV ONE (15:10)
[2020-06-06] MEDS ORDERED: LIDOCAINE 2% PF 5 ML VIAL. ONE (15:10)
[2020-06-06] MEDS ORDERED: MIDAZOLAM HCL/PF 2 MG/2 ML VIAL. ONE (15:57)
[2020-06-06] MEDS ORDERED: ONDANSETRON PF 4 MG/2 ML VIAL. ONE (16:20)
[2020-06-06] MEDS ORDERED: DEXAMETHASONE SOD PHOS 4 MG/ML VIAL ONE (16:20)
[2020-06-06] MEDS ORDERED: PHENYLEPHRINE in 0.9% NACL PF 1 MG/10 ML SYRINGE. IV ONE (16:31)
[2020-06-06] MEDS ORDERED: SEVOFLURANE 16 TO 30 MINUTES. IH ONE (16:31)
--- NOTE | 2020-06-06 16:44 | PDOC4 ---
Operative Note Operative Note Date of Procedure: June 06, 2020 Pre-Op Diagnosis: Left long finger and hand deep abscess, hematoma, cellulitis and carbuncle. Left elbow superficial abscess with cellulitis and furuncle. Post-Op Diagnosis: Same Procedure: Incision and drainage left long finger extending onto the hand, dorsal aspect, down to the tendon sheath. Incision and drainage superficial abscess left elbow. Surgeon: Alejandra Greene MD Top Tile Decorator: CHRISTIE Phan Anesthesia: General EBL: 10 mL Specimens Obtained: Swab cultures left long finger/hand. Swab culture left elbow. Aerobic, anaerobic and Gram stain requested. Complications: none Drains: Gauze packing left long finger. Tourniquet: 5 minutes at 250 mmHg Findings: Deep abscess at the left long finger extending onto the dorsum of the hand. This extends down to the extensor tendon mechanism but there does not seem to be any tendon sheath infection. The elbow abscess is superficial but below the level of the skin and subcutaneous tissue, down to the level of the olecranon bursa but without bursal swelling or bursal fluid. Indications for Procedure: This patient is a 54 -year-old with left long finger infection. Some type of incision and drainage was done in the ER but the finger is getting worse. He has been on IV antibiotics. He also has a left elbow superficial abscess. I recommended surgical incision and drainage. He said the attempted drainage in the ER was very painful and he does not think it was suc cessful because the finger is getting worse. We discussed the potential risks of scarring, nerve injury, and ongoing infection, need for additional surgery or other potential surgical or anesthetic complications. All of his questions about surgery were answered and he desires to proceed. Procedure in Detail: The patient was identified in the preoperative holding area. The correct left upper extremity was marked by me at the elbow and long finger. The patient was taken to the operating room where general anesthetic was used. The patient was positioned supine on the operating table. A tourniquet was applied to the upper portion of the limb. The patient remains on scheduled antibiotics so no addtional antibiotics were given. A timeout procedure was performed. An Esmarch bandage was used around the forearm, and the tourniquet inflated. The left long finger abscess was extended proximally with a 15 blade scalpel. Full-thickness skin flaps were elevated. There is purulent drainage and cultures were taken. I visualized the extensor tendon mechanism, and there is hematoma and pus along the entire extensor tendon extending proximal to the metacarpophalangeal joint and onto the hand where there is mostly hematoma. Rongeurs were used for excisional debridement of the nonviable tissue, with care made not to injure the neurovascular structures, and care made not to remove any of the extensor tendon. I extended the incision proximally so that I could dissect along the dorsum of the hand digitally and break up that hematoma. I then used Betadine lavage followed by copious saline irrigation with the [employer] InterPulse device processing engineer. The tourniquet was released. Electrocautery was used carefully for hemostasis. Loupe magnification 3.5 power extended field was used throughout the procedure to prevent neurovascular or tendinous injury. The incision was closed in a single layer proximally with 3-0 Prolene horizontal mattress sutures. I left the distal open wound open and packed this with quarter inch gauze packing. Next the superficial elbow abscess was incised with a 15 blade scalpel. The incision went through the skin and subcutaneous tissue, probably to the level of the olecranon bursa but the abscess stops at this point. Cultures were taken. There was purulent drainage. Rongeurs were used to remove purulent tissue and some nonviable tissue. Betadine lavage was used followed by copious saline irrigation. This wound is fairly small and was left open for drainage. Xeroform and sterile dressings were applied. There were no apparent complications. ALEJANDRA GREENE MD Jun 06, 2020 16:44
[2020-06-06] MEDS ORDERED: oxyCODONE/APAP 5/325 1 TAB TABLET PO PRN (16:45)
[2020-06-06] MEDS: fentaNYL PF VIAL 100 MCG/2 ML VIAL IV PRN ×2 (17:06→17:21)
[2020-06-07 03:00] VITALS: BP 122/80
[2020-06-07 07:00] VITALS: BP 136/100
--- NOTE | 2020-06-07 07:54 | PDOC ---
ORTHO PROGRESS NOTES DATE: 06/07/20 TIME: 07:41 Subjective Patient is somewhat painful but tolerable. Post-op Day: 1 Procedure Irrigation and debridement of left long finger extending onto the hand. Vitals Vital Signs Date Time Temp Pulse Resp B/P (MAP) Pulse Ox O2 Delivery O2 Flow Rate FiO2 06/07/20 07:00 97.7 103 18 136/100 (112) 97 Room Air 97.7 06/06/20 17:21 5.0 Labs Laboratory Tests Test 06/06/20 04:55 06/06/20 10:58 06/06/20 11:18 Urine Opiates Screen Neg (NEG) Urine Methadone Screen Neg (NEG) Urine Barbiturates Neg (NEG) Urine Phencyclidine Screen Neg (NEG) Urine Amphetamine/Methamphetamine Pos (NEG) Urine Benzodiazepines Screen Neg (NEG) Urine Cocaine Screen Neg (NEG) Urine Cannabinoids Screen Neg (NEG) Urine Ethyl Alcohol Neg (NEG) SARS-CoV-2 Antigen (Rapid) Negative (NEGATIVE) Creatinine 0.9 mg/dL (0.7-1.3) Estimated GFR (Cockcroft-Gault) 88.6 Vancomycin Level Trough 10.1 mcg/mL (10.0-20.0) Vancomycin Last Dose Date 06/05/20 Vancomycin Last Dose Time 2300 Laboratory Tests Test 06/06/20 10:58 06/06/20 11:18 SARS-CoV-2 Antigen (Rapid) Negative (NEGATIVE) Creatinine 0.9 mg/dL (0.7-1.3) Estimated GFR (Cockcroft-Gault) 88.6 Vancomycin Level Trough 10.1 mcg/mL (10.0-20.0) Vancomycin Last Dose Date 06/05/20 Vancomycin Last Dose Time 2300 Notes Awake and alert Assessment and Plan Postop day 1 status post irrigation and debridement of the left long finger extending onto the hand. Motor and sensation intact distally at the long finger. Dressing with only a small amount of old blood visualized. Patient is able to move his finger upon request. We will discuss with Dr. Greene regarding discharge. VENECIA BOWERS APRN Jun 07, 2020 07:54
[2020-06-07] MEDS: LACTOBACILLUS RHAMNOSUS GG 1 CAPSULE. PO SCH (08:00)
[2020-06-07] MEDS: AZITHROMYCIN 250 MG TABLET. PO SCH (08:00)
[2020-06-07] MEDS: oxyCODONE/APAP 5/325 1 TAB TABLET PO PRN (08:00)
[2020-06-07] MEDS ORDERED: IBUP-1027 PO (09:14)
[2020-06-07] MEDS ORDERED: TRAM-48 PO (09:14)
--- NOTE | 2020-06-07 09:27 | PDOC3 ---
Discharge Summary Visit Information Date of Admission: Jun 05, 2020 Date of Discharge: Jun 07, 2020 Final Diagnosis left ring finger infection with abcess, I+D done in the ER, sepsis cellulitis and abcess near elbow tobacco use 'prior hx of meth abuse, in remission Problems Medical Problems: (1) Abscess of finger Status: Acute (2) Cellulitis of left hand Status: Acute (3) Hand pain, left Status: Acute (4) SIRS (systemic inflammatory response syndrome) Status: Acute Brief Hospital Course Allergies Allergies Coded Allergies Type Severity Reaction Last Updated Verified No Known Drug Allergies 06/04/20 No Vital Signs Vital Signs Date Time Temp Pulse Resp B/P (MAP) Pulse Ox O2 Delivery O2 Flow Rate FiO2 06/07/20 08:00 Room Air 06/07/20 07:00 97.7 103 18 136/100 (112) 97 97.7 06/06/20 17:21 5.0 Lab Results Laboratory Tests Test 06/06/20 04:55 06/06/20 10:58 06/06/20 11:18 Urine Opiates Screen Neg (NEG) Urine Methadone Screen Neg (NEG) Urine Barbiturates Neg (NEG) Urine Phencyclidine Screen Neg (NEG) Urine Amphetamine/Methamphetamine Pos (NEG) Urine Benzodiazepines Screen Neg (NEG) Urine Cocaine Screen Neg (NEG) Urine Cannabinoids Screen Neg (NEG) Urine Ethyl Alcohol Neg (NEG) SARS-CoV-2 Antigen (Rapid) Negative (NEGATIVE) Creatinine 0.9 mg/dL (0.7-1.3) Estimated GFR (Cockcroft-Gault) 88.6 Vancomycin Level Trough 10.1 mcg/mL (10.0-20.0) Vancomycin Last Dose Date 06/05/20 Vancomycin Last Dose Time 2300 Laboratory Tests Test 06/06/20 10:58 06/06/20 11:18 SARS-CoV-2 Antigen (Rapid) Negative (NEGATIVE) Creatinine 0.9 mg/dL (0.7-1.3) Estimated GFR (Cockcroft-Gault) 88.6 Vancomycin Level Trough 10.1 mcg/mL (10.0-20.0) Vancomycin Last Dose Date 06/05/20 Vancomycin Last Dose Time 2300 Brief Hospital Course Mr. Marie is a 54 old male, presented with severe looking finger, with concern for tenosynovitis at first, I+D in the ER, then still cellulitis, other abcess at elbow, taken to OR on for I +D, Dr. Greene, Surg of of the left long finger extending onto the hand. Motor and sensation were intact distally at the long finger. Discharge Information Follow Up: Weeks Disposition/Orders: D/C to Home Scheduled Clindamycin Hcl (Clindamycin Hcl) 300 Mg Capsule, 3 CAP PO TID for hand infection for 7 Days, #63 Prescribed by: MERCEDEZ HAMPTON on 06/05/20 1010 Info (No Known Medications Prior To Admisstion) Each, 1 EACH 1-2XD for no, (Reported) Entered as Reported by: CECELIA BRYAN on 06/05/20454 Last Action: New Order on 06/05/20454 by CECELIA BRYAN Scheduled PRN Ibuprofen (Ibuprofen) 400 Mg Tablet, 400 MG PO PRN Q6HRS PRN for INFLAMMATION, #30 Prescribed by: MERCEDEZ HAMPTON on 06/07/20 0914 Tramadol Hcl (Ultram) 50 Mg Tablet, 1 TAB PO PRN TID PRN for pain MDD 3 Tablet(s), #22 Ref 0 Prescribed by: MERCEDEZ HAMPTON on 06/07/20 0914 Patient Instructions Patient Instructions face to facemask discussed coordinatino of care > 30minutes Justicifation of Admission Dx: Justifications for Admission: Justification of Admission Dx: Yes Sepsis: Infection MERCEDEZ HAMPTON MD Jun 07, 2020 09:27
--- NOTE | 2020-06-07 09:49 | NUR ---
SW following. Discussed with RN, pt had surgery 06/06. Pt cleared by PAT. Discharge order for home with self care. No further SW needs.
[2020-06-07 11:00] VITALS: BP 143/83
[2020-06-07] MEDS: VANCOMYCIN 1.25 GM in IV NORMAL SALINE 250ML 250 ML IV SCH (11:00)
== END 2020-06-07 12:20 | disposition home or self-care (01) ==
LOC: ER 21:26 → 4 NORTH 06-05 04:03
PROVIDERS: ADMIT Family Medicine; ATTEND Family Medicine
DX: A41.9 Sepsis, unspecified organism (principal); L03.012 Cellulitis of left finger; L02.512 Cutaneous abscess of left hand; L03.114 Cellulitis of left upper limb; L02.93 Carbuncle, unspecified; L02.414 Cutaneous abscess of left upper limb; F17.210 Nicotine dependence, cigarettes, uncomplicated; F15.11 Other stimulant abuse, in remission
CPT/HCPCS: 10061; 36415; 73201; 80053; 80202; 80307; 82565; 83605; 85025; 85610; 87040; 87070; 87071; 87075; 87077; 87186; 87426; 96365; 96366; 96375; 96376; 99284; A7015; G0378; J0696; J1100; J1170; J2250; J2370; J2405; J2704; J3010; J3370; J7040; J7050; U0003; G0379; A4461; J7030

== ENCOUNTER 2022-02-04 04:24 | Inpatient (IN) | payer SELFPAY ==
[~2022-02-04] VITALS: Ht 177.8 cm; Wt 74.5 kg
[~2022-02-04 04:24] MED LIST: CLIN-94 PO; IBUP-1027 PO; TRAM-48 PO
[2022-02-04] MEDS ORDERED: ONDANSETRON PF 4 MG/2 ML VIAL. IVP ONE (05:00)
[2022-02-04 05:46] LABS: HEMATOCRIT 42.2 % (39.0-53.0); HEMOGLOBIN 14.2 g/dL (13.0-17.5); RED BLOOD COUNT 4.57 x10^6/uL (4.30-5.70); RED CELL DISTRIBUTION WIDTH 15.1 % (11.5-14.5); WHITE BLOOD COUNT 8.2 x10^3/uL (4.0-11.0)
[2022-02-04 06:00] LABS: CALCIUM 8.1 mg/dL (8.5-10.1); CREATININE 1.6 mg/dL (0.7-1.3); GFR 45.3; POTASSIUM 3.6 mmol/L (3.5-5.1)
[2022-02-04] MEDS ORDERED: NALOXONE 0.4 MG/ML VIAL. IV ONE ×2 (06:00→10:45)
--- NOTE | 2022-02-04 06:17 | PHYS DOC ---
Past Medical History Past Medical History: No Pertinent History (BALWINDER QUINN MD) Past Surgical History: Other Additional Past Surgical Histo: Neck surgery (BALWINDER QUINN MD) Smoking Status: Current Every Day Smoker Alcohol Use: None (BALWINDER QUINN MD) General Adult EDM: Chief Complaint: OVERDOSE HPI: HPI: Patient is a 56 year old who is presents today with possible narcotic overdose. The patient apparently passed out in the roommate found him and gave him a cold shower to try to wake him up and called the ambulance. On arrival ambulance gave him some Narcan. Patient told him that he had been taking possibly fentanyl. Per EMS they gave him 1 mg of Narcan but this did not wake him up significantly. On arrival the patient appears somnolent and will not answer many questions. (BALWINDER QUINN MD) Review of Systems: Review of Systems: Cannot perform accurately due to acuity of condition (BALWINDER QUINN MD) Heart Score: C/O Chest Pain: No Risk Factors: Risk Factors: DM, Current or recent (<one month) smoker, HTN, HLP, family history of CAD, obesity. Risk Scores: Score 0 - 3: 2.5% MACE over next 6 weeks - Discharge Home Score 4 - 6: 20.3% MACE over next 6 weeks - Admit for Clinical Observation Score 7 - 10: 72.7% MACE over next 6 weeks - Early Invasive Strategies (BALWINDER QUINN MD) Current Medications: Current Medications Medications (Trade) Dose Ordered Sig/Louie Start Time Stop Time Status Last Admin Dose Admin Naloxone HCl (Narcan) 0.8 mg 1X ONCE 02/04/22 06:00 02/04/22 06:01 DC 02/04/22 05:43 0.8 MG Ondansetron HCl (Zofran) 4 mg 1X ONCE 02/04/22 05:00 02/04/22 05:01 DC 02/04/22 04:50 4 MG (BALWINDER QUINN MD) Allergies: Allergies: Allergies Coded Allergies Type Severity Reaction Last Updated Verified I S O L A T I O N *CONTACT* Allergy Unknown 02/04/22 Yes No Known Medication Allergies Allergy Unknown 02/04/22 Yes (BALWINDER QUINN MD) Physical Exam: PE: Constitutional: Somnolent HENT: Small red patches and dots across the occiput Eyes: PERRLA, EOMI, conjunctiva normal, no discharge. [] Neck: Normal range of motion, no tenderness, supple, no stridor. [] Cardiovascular:Heart rate regular rhythm, no murmur [] Lungs & Thorax: Bilateral breath sounds clear to auscultation [] Abdomen: Bowel sounds normal, soft, no tenderness, no masses, no pulsatile masses. [] Skin: Warm, dry, no erythema, no rash. [] Back: No tenderness, no CVA tenderness. [] Extremities: No tenderness, no cyanosis, no clubbing, ROM intact, no edema. [] Neurologic: Alert but somnolent (BALWINDER QUINN MD) Current Patient Data: Labs: Laboratory Tests Test 02/04/22 05:20 White Blood Count 8.2 x10^3/uL (4.0-11.0) Red Blood Count 4.57 x10^6/uL (4.30-5.70) Hemoglobin 14.2 g/dL (13.0-17.5) Hematocrit 42.2 % (39.0-53.0) Mean Corpuscular Volume 92 fL (79-100) Mean Corpuscular Hemoglobin 31 pg (25-35) Mean Corpuscular Hemoglobin Concent 34 g/dL (31-37) Red Cell Distribution Width 15.1 % (11.5-14.5) H Platelet Count 182 x10^3/uL (140-400) Sodium Level 142 mmol/L (136-145) Potassium Level 3.6 mmol/L (3.5-5.1) Chloride Level 106 mmol/L (98-107) Carbon Dioxide Level 28 mmol/L (21-32) Anion Gap 8 (6-14) Blood Urea Nitrogen 24 mg/dL (8-26) Creatinine 1.6 mg/dL (0.7-1.3) H Estimated GFR (Cockcroft-Gault) 45.3 Glucose Level 116 mg/dL (70-99) H Calcium Level 8.1 mg/dL (8.5-10.1) L Creatine Kinase 238 U/L (39-308) Ethyl Alcohol Level < 10 mg/dL (0-10) Laboratory Tests 02/04/22 05:20 Laboratory Tests 02/04/22 05:20 Vital Signs: Vital Signs Date Time Temp Pulse Resp B/P (MAP) Pulse Ox O2 Delivery O2 Flow Rate FiO2 02/04/22 04:24 97.9 95 20 135/87 (103) 93 Nasal Cannula 3.0 97.9 (BALWINDER QUINN MD) EKG: EKG: [] (BALWINDER QUINN MD) Radiology/Procedures: Radiology/Procedures: [] (BALWINDER QUINN MD) Course & Med Decision Making: Course & Med Decision Making Pertinent Labs and Imaging studies reviewed. (See chart for details) Patient did not significantly change in mentation after I gave him Narcan in the emergency department. He continued to be hypoxic on room air. Therefore I will obtain further imaging and work-up. Patient will be signed off to oncoming physician. (BALWINDER QUINN MD) Course & Med Decision Making Case was endorsed to me from Dr. Quinn. Patient is observed in the ER , patient was unable to return to his baseline after 8 hours. Patient states that he feels slightly dizzy and presents mildly hypotensive. We have attempted to feed the patient as well as give IV hydration patient was any unable to be discharged safely I discussed the case with the hospitalist who is excepted the patient graciously (DYLON PRADHAN DO) Dragon Disclaimer: Dragkylie Disclaimer: This electronic medical record was generated, in whole or in part, using a voice recognition dictation system. (BALWINDER QUINN MD) Departure Departure Impression: Primary Impression: Opioid overdose Additional Impression: Altered mental status Disposition: 30 STILL A PATIENT Condition: STABLE Referrals: NO PCP (PCP) BALWINDER QUINN MD Feb 04, 2022 06:17 DYLON PRADHAN DO Feb 04, 2022 12:47
--- NOTE | 2022-02-04 07:00 | RAD ---
EXAM: CT Head without IV contrast CLINICAL HISTORY: Reason: AMS COMPARISON: None. TECHNIQUE: Routine CT of the head without contrast. PQRS compliance statement - One or more of the following individualized dose reduction techniques wer e utilized for this study: 1. Automated exposure control 2. Adjustment of the mA and/or kV according to patient size 3. Use of iterative reconstruction technique FINDINGS: There is no evidence of hemorrhage, mass or extra-axial fluid collection. Lao-white differentiation is maintained with no evidence of edema. There is no mass effect or shift of the intracranial structures. The ventricles, basilar cisterns and cortical sulci are normal in size and configuration for the jojo ents stated age. The cerebellum and brainstem are unremarkable. The calvarium demonstrates no evidence of fracture or focal lesion. Scattered ethmoid air cell and sphenoid sinus thickening, sinusitis. Otherwise, there is normal aerat ion of the visualized paranasal sinuses and mastoid air cells. The visualized portions of the orbits are normal. IMPRESSION: No evidence for acute intracranial process. Electronically signed by: Jim Huffman MD (02/04/2022 6:57 AM) CARLIN
--- NOTE | 2022-02-04 07:03 | RAD ---
EXAM: AP View of the chest DATE: 02/04/2022 6:31 AM INDICATION: Reason: AMS / Spl. Instructions: / History: COMPARISON: No Prior FINDINGS/ IMPRESSION: Mild cardiomegaly. Perihilar and left lung base airspace opacities likely multifocal consolidative pr ocess pneumonia. Atelectasis could also have this appearance. No pleural effusion or pneumothorax. Electronically signed by: Jim Huffman MD (02/04/2022 7:01 AM) CARLIN
--- NOTE | 2022-02-04 11:44 | EKG ---
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
[2022-02-04 11:53] LABS: AMPHETAMINE/METHAMPHETAMINE POS (NEG); BARBITURATES NEG (NEG); BENZODIAZEPINES NEG (NEG); CANNABINOIDS POS (NEG); COCAINE NEG (NEG); METHADONE NEG (NEG); OPIATES POS (NEG); PHENCYCLIDINE POS (NEG)
[2022-02-04] MEDS ORDERED: IV NORMAL SALINE 1000ML BAG 1,000 ML IV ONE (12:15)
--- NOTE | 2022-02-04 13:07 | PDOC1 ---
History and Physical Date of Admission Date of Admission DATE: 02/04/22 TIME: 13:04 Identification/Chief Complaint Chief Complaint Narcotic overdose Source Source: Chart review, Patient History of Present Illness History of Present Illness Patient is a 56-year-old male with a history of heart disease, who presents to the ER as a narcotic overdose. He was apparently found passed out by his roommate, who called EMS when he was unable to arouse the patient. He was given Narcan by EMS, and 2 additional doses of Narcan in the ER. Upon my evaluation he is alert, but somewhat hypotensive. Given concern for his symptomatic hypotension, will admit patient for further observation. Past Medical History Cardiovascular: CAD Pulmonary: No pertinent hx GI: No pertinent hx Psych: No pertinent hx Past Surgical History Past Surgical History Back surgery, cervical fusion Family History Family History: Alcohol Abuse Social History Smoke: <1 pack per day ALCOHOL: none Drugs: Marijuana, Crystal meth, Other Current Problem List Problem List Problems Medical Problems: (1) Altered mental status Status: Acute (2) Opioid overdose Status: Acute Current Medications Current Medications Current Medications Ondansetron HCl (Zofran) 4 mg 1X ONCE IVP Last administered on 02/04/22at 04:50; Start 02/04/22 at 05:00; Stop 02/04/22 at 05:01; Status DC Naloxone HCl (Narcan) 0.8 mg 1X ONCE IV Last administered on 02/04/22at 05:43; Start 02/04/22 at 06:00; Stop 02/04/22 at 06:01; Status DC Naloxone HCl (Narcan) 1 mg 1X ONCE IV Last administered on 02/04/22at 10:45; Start 02/04/22 at 10:45; Stop 02/04/22 at 10:46; Status DC Sodium Chloride 1,000 ml @ 1,000 mls/hr 1X ONCE IV Last administered on 02/04/22at 12:15; Start 02/04/22 at 12:15; Stop 02/04/22 at 13:14 Active Scripts Active Ibuprofen 400 Mg Tablet 400 Mg PO PRN Q6HRS PRN Ultram (Tramadol Hcl) 50 Mg Tablet 1 Tab PO PRN TID PRN MDD 3 Tablet(s) Clindamycin Hcl 300 Mg Capsule 3 Cap PO TID 7 Days Reported No Known Medications Prior To Admisstion (Info) Each 1 Each 1-2XD Allergies Allergies: Coded Allergies: I S O L A T I O N *CONTACT* (Verified Allergy, Unknown, 02/04/22) mrsa No Known Medication Allergies (Verified Allergy, Unknown, 02/04/22) ROS Review of System GENERAL: No history of weight change, weakness or fevers. SKIN: No bruising, hair changes or rashes. EYES: No blurred, double or loss of vision. NOSE AND THROAT: No history of nosebleeds, hoarseness or sore throat. HEART: Denies chest pain, denies palpitations. LUNGS: Denies cough, hemoptysis, wheezing or shortness of breath. GASTROINTESTINAL: Denies nausea, vomiting, abdominal pain. GENITOURINARY: Denies dysuria, frequency, urgency, hematuria. NEUROLOGIC: Denies history of numbness, tingling, tremor or weakness. PSYCHIATRIC: Denies anxiety, denies depression. ENDOCRINE: No history of heat or cold intolerance, polyuria or polydipsia. EXTREMITIES: Denies muscle weakness, joint pain, pain on walking or stiffness. Physical Exam Physical Exam General: Alert, Oriented X3, Cooperative, No acute distress. Unkempt. HEENT: PERRLA, EOMI Lungs: Clear to auscultation, Normal air movement Heart: RRR, no murmurs Cardiovascular: S1, S2 Abdomen: Normal bowel sounds, Soft, No tenderness Extremities: No clubbing, No cyanosis Skin: No rashes, No significant lesion Neuro: Normal speech, Normal tone, Sensation intact Psych/Mental Status: Mental status NL, Mood NL Vitals Vitals Vital Signs Date Time Temp Pulse Resp B/P (MAP) Pulse Ox O2 Delivery O2 Flow Rate FiO2 02/04/22 07:48 94 96 02/04/22 04:45 20 02/04/22 04:30 Nasal Cannula 5.0 02/04/22 04:24 97.9 135/87 (103) 97.9 Labs Labs Laboratory Tests Test 02/04/22 05:20 02/04/22 11:20 White Blood Count 8.2 x10^3/uL (4.0-11.0) Red Blood Count 4.57 x10^6/uL (4.30-5.70) Hemoglobin 14.2 g/dL (13.0-17.5) Hematocrit 42.2 % (39.0-53.0) Mean Corpuscular Volume 92 fL (79-100) Mean Corpuscular Hemoglobin 31 pg (25-35) Mean Corpuscular Hemoglobin Concent 34 g/dL (31-37) Red Cell Distribution Width 15.1 % (11.5-14.5) Platelet Count 182 x10^3/uL (140-400) Sodium Level 142 mmol/L (136-145) Potassium Level 3.6 mmol/L (3.5-5.1) Chloride Level 106 mmol/L (98-107) Carbon Dioxide Level 28 mmol/L (21-32) Anion Gap 8 (6-14) Blood Urea Nitrogen 24 mg/dL (8-26) Creatinine 1.6 mg/dL (0.7-1.3) Estimated GFR (Cockcroft-Gault) 45.3 Glucose Level 116 mg/dL (70-99) Calcium Level 8.1 mg/dL (8.5-10.1) Creatine Kinase 238 U/L (39-308) Troponin I High Sensitivity < 4 ng/L (4-75) Ethyl Alcohol Level < 10 mg/dL (0-10) Urine Opiates Screen Pos (NEG) Urine Methadone Screen Neg (NEG) Urine Barbiturates Neg (NEG) Urine Phencyclidine Screen Pos (NEG) Urine Amphetamine/Methamphetamine Pos (NEG) Urine Benzodiazepines Screen Neg (NEG) Urine Cocaine Screen Neg (NEG) Urine Cannabinoids Screen Pos (NEG) Urine Ethyl Alcohol Neg (NEG) Laboratory Tests Test 02/04/22 05:20 02/04/22 11:20 White Blood Count 8.2 x10^3/uL (4.0-11.0) Red Blood Count 4.57 x10^6/uL (4.30-5.70) Hemoglobin 14.2 g/dL (13.0-17.5) Hematocrit 42.2 % (39.0-53.0) Mean Corpuscular Volume 92 fL (79-100) Mean Corpuscular Hemoglobin 31 pg (25-35) Mean Corpuscular Hemoglobin Concent 34 g/dL (31-37) Red Cell Distribution Width 15.1 % (11.5-14.5) Platelet Count 182 x10^3/uL (140-400) Sodium Level 142 mmol/L (136-145) Potassium Level 3.6 mmol/L (3.5-5.1) Chloride Level 106 mmol/L (98-107) Carbon Dioxide Level 28 mmol/L (21-32) Anion Gap 8 (6-14) Blood Urea Nitrogen 24 mg/dL (8-26) Creatinine 1.6 mg/dL (0.7-1.3) Estimated GFR (Cockcroft-Gault) 45.3 Glucose Level 116 mg/dL (70-99) Calcium Level 8.1 mg/dL (8.5-10.1) Creatine Kinase 238 U/L (39-308) Troponin I High Sensitivity < 4 ng/L (4-75) Ethyl Alcohol Level < 10 mg/dL (0-10) Urine Opiates Screen Pos (NEG) Urine Methadone Screen Neg (NEG) Urine Barbiturates Neg (NEG) Urine Phencyclidine Screen Pos (NEG) Urine Amphetamine/Methamphetamine Pos (NEG) Urine Benzodiazepines Screen Neg (NEG) Urine Cocaine Screen Neg (NEG) Urine Cannabinoids Screen Pos (NEG) Urine Ethyl Alcohol Neg (NEG) Images Images PATIENT: LEONEL BERMEO ACCOUNT: [id number] : 1965 LOCATION: ER AGE: 56 SEX: M EXAM STATUS: REG ER ORD. PHYSICIAN: BALWINDER QUINN MD REASON: AMS PROCEDURE: CT HEAD WO CONTRAST EXAM: CT Head without IV contrast CLINICAL HISTORY: Reason: AMS COMPARISON: None. TECHNIQUE: Routine CT of the head without contrast. PQRS compliance statement - One or more of the following individualized dose reduction techniques were utilized for this study: 1. Automated exposure control 2. Adjustment of the mA and/or kV according to patient size 3. Use of iterative reconstruction technique FINDINGS: There is no evidence of hemorrhage, mass or extra-axial fluid collection. Lao-white differentiation is maintained with no evidence of edema. There is no mass effect or shift of the intracranial structures. The ventricles, basilar cisterns and cortical sulci are normal in size and configuration for the patients stated age. The cerebellum and brainstem are unremarkable. The calvarium demonstrates no evidence of fracture or focal lesion. Scattered ethmoid air cell and sphenoid sinus thickening, sinusitis. Otherwise, there is normal aeration of the visualized paranasal sinuses and mastoid air cells. The visualized portions of the orbits are normal. IMPRESSION: No evidence for acute intracranial process. PATIENT: LEONEL BERMEO ACCOUNT: [id number] : 1965 LOCATION: ER AGE: 56 SEX: M EXAM STATUS: REG ER ORD. PHYSICIAN: BALWINDER QUINN MD REASON: AMS PROCEDURE: CHEST AP ONLY EXAM: AP View of the chest DATE: 02/04/2022 6:31 AM INDICATION: Reason: AMS / Spl. Instructions: / History: COMPARISON: No Prior FINDINGS/ IMPRESSION: Mild cardiomegaly. Perihilar and left lung base airspace opacities likely multifocal consolidative process pneumonia. Atelectasis could also have this appearance. No pleural effusion or pneumothorax. VTE Prophylaxis Ordered VTE Prophylaxis Devices: Yes VTE Pharmacological Prophylaxi: No Assessment/Plan Assessment/Plan Polysubstance abuse Symptomatic hypotension ANTHONY Plan: Patient has been admitted IV fluids Supportive care FEN - Cardiac diet PPX - SCDs FULL CODE Dispo - observation for above Justifications for Admission Other Justification LUCIA COLLIER MD Feb 04, 2022 13:07
[2022-02-04] MEDS ORDERED: MAGNESIUM HYDROXIDE 2,400 MG/30 ML ORAL.SUSP. PO PRN (13:15)
[2022-02-04] MEDS ORDERED: ZOLPIDEM 5 MG TABLET. PO PRN (13:15)
[2022-02-04] MEDS ORDERED: CALCIUM CARBONATE 500 MG TAB.CHEW PO PRN (13:15)
[2022-02-04] MEDS ORDERED: MAG HYDROX/ALUMINUM HYD/SIMETH 30 ML ORAL.SUSP PO PRN (13:15)
[2022-02-04] MEDS ORDERED: ONDANSETRON PF 4 MG/2 ML VIAL. IVP PRN (13:15)
[2022-02-04] MEDS ORDERED: ACETAMINOPHEN 325 MG TABLET. PO PRN (13:15)
[2022-02-04] MEDS ORDERED: HYDROcodone/APAP 5/325MG 1 TAB TABLET PO PRN (13:15)
[2022-02-04] MEDS ORDERED: IV NORMAL SALINE 500ML BAG 500 ML IV ONE (13:30)
[2022-02-04 19:20] VITALS: BP 124/72
[2022-02-04 23:00] VITALS: BP 98/59
[2022-02-05] VITALS (7 sets, daily range): BP systolic 88–112; BP diastolic 55–84
[2022-02-05] MEDS ORDERED: FURO20TA3 PO (03:14)
[2022-02-05] MEDS ORDERED: METO25TA4 PO (03:14)
[2022-02-05] MEDS ORDERED: GABA-585 PO (03:14)
[2022-02-05] MEDS ORDERED: LOSA1TAB25 PO (03:14)
[2022-02-05] MEDS ORDERED: HALOPERIDOL LACTATE 5 MG/ML VIAL. IVP PRN (08:15)
[2022-02-05] MEDS ORDERED: diphenhydrAMINE 50 MG/ML VIAL IVP PRN (08:15)
--- NOTE | 2022-02-05 08:16 | PDOC ---
[employer] PROGRESS NOTE Date of Service DOS: DATE: 02/05/22 TIME: 08:12 Chief Complaint Chief Complaint Polysubstance abuse Symptomatic hypotension ANTHONY Acute respiratory failure with hypoxia Acute CHF exacerbation History of Present Illness History of Present Illness 02/05: Patient seen and evaluated bedside. Diaphoretic and complains of shortness of breath. He is able to me this morning that he has a history of heart failure and has been without his heart failure medication for some time. Previously prescribed at metoprolol twice daily, losartan, spironolactone, Lasix, and gabapentin for depression. Tells me he takes daily Lasix and gabape ntin, last time he took his Lasix was 2 days ago. Will change to inpatient status and order echocardiogram. Consider consulting cardiology. Still denies alcohol use. Discussed with RN. Vitals/I&O Vitals/I&O: Vital Signs Date Time Temp Pulse Resp B/P (MAP) Pulse Ox O2 Delivery O2 Flow Rate FiO2 02/05/22 07:41 Room Air 02/05/22 07:15 97.4 95 20 105/72 (83) 97 97.4 I & O 02/04/22 02/04/22 02/05/22 15:00 23:00 07:00 Intake Total 1000 ml 980 ml Balance 1000 ml 980 ml Physical Exam General: Alert, mild distress Heart: Regular rate Lungs: Crackles Abdomen: Soft, No tenderness Extremities: Other (2+ edema bilateral) Skin: No rashes, No breakdown Labs Labs: Laboratory Tests Test 02/04/22 11:20 Urine Opiates Screen Pos (NEG) Urine Methadone Screen Neg (NEG) Urine Barbiturates Neg (NEG) Urine Phencyclidine Screen Pos (NEG) Urine Amphetamine/Methamphetamine Pos (NEG) Urine Benzodiazepines Screen Neg (NEG) Urine Cocaine Screen Neg (NEG) Urine Cannabinoids Screen Pos (NEG) Urine Ethyl Alcohol Neg (NEG) Assessment and Plan Assessmemt and Plan Problems Medical Problems: (1) Altered mental status Status: Acute (2) Opioid overdose Status: Acute Comment Review of Relevant I have reviewed the following items ruben (where applicable) has been applied. Medications: Current Medications Medications (Trade) Dose Ordered Sig/Louie Route PRN Reason Start Time Stop Time Status Last Admin Dose Admin Naloxone HCl (Narcan) 1 mg 1X ONCE IV 02/04/22 10:45 02/04/22 10:46 DC 02/04/22 10:45 Sodium Chloride 1,000 ml @ 1,000 mls/hr 1X ONCE IV 02/04/22 12:15 02/04/22 13:15 DC 02/04/22 12:15 Calcium Carbonate/ Glycine (Tums) 500 mg PRN Q3HRS PRN PO UPSET STOMACH 02/04/22 13:15 02/05/22 06:21 Sodium Chloride 500 ml @ 500 mls/hr 1X ONCE IV 02/04/22 13:30 02/04/22 14:29 DC 02/04/22 14:00 Justifications for Admission Other Justification LUCIA COLLIER MD Feb 05, 2022 08:16
[2022-02-05] MEDS: SPIRONOLACTONE 25 MG TABLET PO SCH (08:32)
[2022-02-05] MEDS: FOLIC ACID 1 MG TABLET. PO SCH (08:32)
[2022-02-05] MEDS: LOSARTAN POTASSIUM 25 MG TABLET. PO SCH (08:32)
[2022-02-05] MEDS: THIAMINE 100 MG TABLET. PO SCH (08:32)
[2022-02-05] MEDS: MULTIVITAMIN with MINERAL TABLET. PO SCH (08:32)
[2022-02-05] MEDS: GABAPENTIN 100 MG CAPSULE. PO SCH ×2 (08:33→21:28)
[2022-02-05] MEDS: METOPROLOL TART IMMED RELEASE 25 MG TABLET. PO SCH ×2 (08:33→21:29)
[2022-02-05] MEDS: FUROSEMIDE 40 MG/4 ML VIAL. IVP SCH (08:34)
--- NOTE | 2022-02-05 09:51 | NUR ---
SW following. Discussed with RN, pt from home with roommate, room air, cardiac diet. Pt positive for opiates, PCP, meth and marijuana - was found unresponsive by roommate. PAT consulted. Pt withdrawing per RN. Med Assist following for self pay status. SW will continue to follow.
--- NOTE | 2022-02-05 10:21 | NUR ---
At approximately 0945 patient observed on hands and knees on floor next to bed by staff. Food Service Driver asked patient what he was doing and he stated "the doctor told me to get up", patient is not alert and oriented, VSS, alarm on bed turned on. Patient stated he did not hit head. Notified Dr. Davis and Yue [email or web address] debone processing supervisor.
--- NOTE | 2022-02-05 12:37 | CARD ---
MR#: [id number] Date of Study: 02/05/2022 Ordering Physician: LUCIA COLLIER, Referring Physician: LUCIA COLLIER, Tech: [facility] APPROVED REPORT EXAM: Two-dimensional and M-mode echocardiogram with Doppler and color Doppler. Other Information Quality : Technically LimitedHR: 90bpm Rhythm : NSR INDICATION Hypertension/HCVD RISK FACTORS Hypertension 2D DIMENSIONS RVDd4.1 (2.9-3.5cm)Left Atrium(2D)3.6 (1.6-4.0cm) IVSd0.9 (0.7-1.1cm)Aortic Root(2D)3.6 (2.0-3.7cm) LVDd5.7 (3.9-5.9cm)LVOT Diameter2.5 (1.8-2.4cm) PWd1.0 (0.7-1.1cm)LVDs5.2 (2.5-4.0cm) FS (%) 9.2 %SV31.6 ml LVEF(%)19.9 (>50%) Aortic Valve AoV Peak Primo.94.0cm/sAoV VTI14.8cm AO Peak GR.3.5mmHgLVOT Peak Primo.79.4cm/s AO Mean GR.2mmHgAVA (VMAX)4.07cm2 Mitral Valve MV E Ajrpylcp970.2cm/sMV DECEL IJIY735xd MV A Jrfmdpkt36.9cm/sE/A Ratio2.8 Pulmonary Valve PV Peak Ykehnqjn48.4cm/s Tricuspid Valve TR P. Vevsucwj229ud/sTR Peak Gr.28mmHg LEFT VENTRICLE The Left Ventricle is borderline dilated. There is normal left ventricular wall thickness. The ejecti on fraction is severely impaired. Estimated ejection fraction 10% There is global hypokinesis of the left ventricle. Tissue Doppler imaging reveals severe left ventricular diastolic dysfunction. RIGHT VENTRICLE The right ventricle is borderline dilated. There is normal right ventricular wall thickness. RV Systo lic function is moderately reduced. ATRIA The left atrium is moderately dilated. The right atrium is moderately dilated. The interatrial septum is intact with no evidence for an atrial septal defect or patent foramen ovale as noted on 2-D or Do ppler imaging. AORTIC VALVE The aortic valve is thickened but opens well. Doppler and Color Flow revealed trace aortic regurgitat ion. There is no significant aortic valvular stenosis. MITRAL VALVE The mitral valve is normal in structure and function. There is no evidence of mitral valve prolapse. There is no mitral valve stenosis. Doppler and Color-flow revealed moderate mitral regurgitation. TRICUSPID VALVE The tricuspid valve is normal in structure and function. Doppler and Color Flow revealed moderate to severe tricuspid regurgitation. Estimated PAP 40-45 mmHg. There is no tricuspid valve stenosis. PULMONIC VALVE Doppler and Color Flow revealed no pulmonic valvular regurgitation. There is no pulmonic valvular oskar nosis. GREAT VESSELS The aortic root is upper limits of normal in size. The IVC is dilated and collapses <50% with inspira tion. PERICARDIAL EFFUSION There is no evidence of significant pericardial effusion. Critical Notification Critical Value: No <Conclusion> The ejection fraction is severely impaired. Estimated ejection fraction 10% There is global hypokinesis of the left ventricle. Doppler and Color-flow revealed moderate mitral regurgitation. Doppler and Color Flow revealed moderate to severe tricuspid regurgitation. Estimated PAP 40-45 mmHg . Signed by : Alex Sanchez, Electronically Approved : 02/05/2022 12:36:44
--- NOTE | 2022-02-05 13:00 | NUR ---
Pt transferred from [address] [place] [address] to room 532. Report called to CRISTHIAN Rushing from TEENA Smith on 4N. Pt transported via bed. Pt asleep and not in any apparent distress at this time. separator inserter applied. Call light within reach and bed alarm activated. Will continue to monitor.
--- NOTE | 2022-02-05 13:06 | PDOC2 ---
GIL BONDS Rodrick RUG BACKING STENCILER 02/05/22 1306: CARDIAC CONSULT DATE OF CONSULT Date of Consult DATE: 02/05/22 TIME: 12:39 REASON FOR CONSULT Reason for Consult: Severe cardiomyopathy REFERRING PHYSICIAN Referring Physician: Susan SOURCE Source: Chart review, Patient HISTORY OF PRESENT ILLNESS HISTORY OF PRESENT ILLNESS This is a 56 yo male admitted for possible opioid overdose. He was unresponsive when his room mate cound him and upon EMS arrival he was given narcan. He has been taking fentanyl and responded with x1 narcan. He is significant for polysubstance abuse and actually had significna cardiac workup January of last yr at [facility] noted with polysubstance abuse. He was diagnosed with NICM over there an d treated. Per chart review he has not been taking his medications or he may have ran out. Presently he is very drowsy as he just received ativan so I could not get much details. CHF jett is currently compensated. No reported arrhythmias, chest pain and no reported syncope. PAST MEDICAL HISTORY Cardiovascular: CHF, HTN, Other (Cardiomyopathy) Psych: Other (polysubstance abuse) Renal/: Chronic renal insuff PAST SURGICAL HISTORY Past Surgical History: Other (cervical fusion) SOCIAL HISTORY Smoke: <1 pack per day Drugs: Cocaine, Marijuana, Crystal meth CURRENT MEDICATIONS CURRENT MEDICATIONS Current Medications Medications (Trade) Dose Ordered Sig/Louie Route PRN Reason Start Time Stop Time Status Last Admin Dose Admin Calcium Carbonate/ Glycine (Tums) 500 mg PRN Q3HRS PRN PO UPSET STOMACH 02/04/22 13:15 02/05/22 06:21 Sodium Chloride 500 ml @ 500 mls/hr 1X ONCE IV 02/04/22 13:30 02/04/22 14:29 DC 02/04/22 14:00 Furosemide (Lasix) 40 mg DAILY IVP 02/05/22 09:00 02/05/22 08:34 Multivitamins (Thera M Plus) 1 tab DAILY PO 02/05/22 09:00 02/05/22 08:32 Folic Acid (Folic Acid) 1 mg DAILY PO 02/05/22 09:00 02/05/22 08:32 Thiamine Mononitrate (Vitamin B-1) 100 mg DAILY PO 02/05/22 09:00 02/05/22 08:32 Lorazepam (Ativan Inj) 4 mg PRN Q1HR PRN IV For CIWA 15 or greater 02/05/22 08:15 02/05/22 08:34 Metoprolol Tartrate (Lopressor) 25 mg BID PO 02/05/22 09:00 02/05/22 08:33 Losartan Potassium (Cozaar) 25 mg DAILY PO 02/05/22 09:00 02/05/22 08:32 Spironolactone (Aldactone) 25 mg DAILY PO 02/05/22 09:00 02/05/22 08:32 Gabapentin (Neurontin) 100 mg BID PO 02/05/22 09:00 02/05/22 08:33 ALLERGIES ALLERGIES: Coded Allergies: I S O L A T I O N *CONTACT* (Verified Allergy, Unknown, 02/04/22) mrsa No Known Medication Allergies (Verified Allergy, Unknown, 02/04/22) ROS Review of System 14 point ROS evaluated with pertinent positives noted per HPI PHYSICAL EXAM General: No acute distress HEENT: Atraumatic Lungs: Other (diminished bases) Heart: Regular rate, Other (2/6 systolic murmur to LLS border) Extremities: No cyanosis, No edema Skin: Other (multiple generalized scabs) Neuro: Sensation intact Psych/Mental Status: Other (very drowsy) MUSCULOSKELETAL: Full range of motion without pain VITALS/I&O VITALS/I&O: Vital Signs Date Time Temp Pulse Resp B/P (MAP) Pulse Ox O2 Delivery O2 Flow Rate FiO2 02/05/22 11:13 97.8 99 22 104/71 (82) 93 Nasal Cannula 2.0 97.8 I & O 02/04/22 02/04/22 02/05/22 15:00 23:00 07:00 Intake Total 1000 ml 980 ml Balance 1000 ml 980 ml ECHOCARDIOGRAM ECHOCARDIOGRAM [facility] TTE 02/06/2021 Left Ventricle: The left ventricle is moderately dilated. The left ventricular wall thickness is normal. The left ventricular systolic function is severely reduced. The visually estimated ejection fraction is 15-20%. There is diffuse hypokinesis. Grade III (severe) left ventricular diastolic dysfunction. Right Ventricle: The right ventricle is moderately dilated. The right ventricular systolic function is mildly reduced. Left Atrium: Moderately dilated. Right Atrium: Moderately dilated. Severe tricuspid valve regurgitation. Mitral Valve: Apically tethered mitral valve leaflets. No stenosis. Moderate regurgitation. Small pericardial effusion. Estimated Peak Systolic PA Pressure 42 mmHg HEART CATH HEART CATH FINDINGS: [facility] 02/08/2021 HEMODYNAMICS: Aortic pressure 95/70 mean 78 mmHg. Left ventricular pressure 108/EDP 30 mmHg. Right atrial pressure 22 mmHg. Right ventricular pressure 40/18 mmHg. Pulmonary artery pressure 44/35 mean 39 mmHg. Pulmonary artery wedge pressure 30 mmHg with a V-wave of 38 mmHg. Transpulmonary gradient 9 mmHg. Pulmonary vascular resistance 5.3 Wood units. Systemic vascular resistance 2589 dynes/sec/cm to the -5. OUTPUTS: Thermodilution cardiac output was 1.73 L/min with an index of 0.88 L/min per sq m. Justyna estimated cardiac output was 2.6 L/min with a cardiac index estimated at 1.3 L/min per sq m. SATURATIONS: Right atrial saturation 47%. Pulmonary artery saturation 47%. A-VO2 difference 9.38 mL/dL. ANATOMY: Left main. The left main arose from the left coronary cusp. It was normal, bifurcating into left anterior descending and circumflex. Left anterior descending. The left anterior descending is a type 3 LAD. It is normal. It supplies 2 diagonals which are normal. Circumflex. The circumflex supplies 1 significant obtuse marginal. At the transition from the circumflex into the obtuse marginal, there is 20% plaque. Right coronary artery. The right coronary artery is dominant, arising from the right coronary cusp. It has mild irregularities in the range of 20% through most of its proximal to mid course. It bifurcates in the posterior descending and posterolateral arteries which are normal. CONTRAST: Visipaque 320, 25 mL. RADIATION EXPOSURE: Fluoroscopy time was 2 minutes with an air kerma total of 239 mGy. MEDICATIONS: Lidocaine 10 mL, fentanyl 50 mcg in divided doses, heparin 4800 units, verapamil 1 mg and Versed bolus 1 mg. CONCLUSIONS: Markedly elevated filling pressures. Markedly reduced cardiac output and index. Minimal coronary irregularities. 02/08/2021 ASSESSMENT/PLAN ASSESSMENT/PLAN 1. Toxic Encephalopathy: due to polysubstance abuse, responded with narcan per EMS. presently very drowsy post ativan 2. Polysubstance abuse: including methamphetamine, fentanyl, marijuana and PCP 3. Acute respiratory failure: due to above. compensated 4. HTN: controlled 5. NICM: EF 15% 6. CKD3 7. Acute on chronic systolic/diastolic CHF: clincally compensated 8. Poor compliance Recommendations 1. Continue HF optimization 2. He will need to follow up with [facility] with addiction clinic and HF clinic if he would comply. SS 3. Continue lasix therapy 4. Transfer to [facility] floor ETHEL BRIONES MD 02/05/22 1728: CARDIAC CONSULT ASSESSMENT/PLAN ASSESSMENT/PLAN The patient was seen and interviewed as well as examined at the bedside. The chart was reviewed. The case was discussed. Agree with the plan of care. GIL BONDS RUG BACKING STENCILER Feb 05, 2022 13:06 ETHEL BRIONES MD Feb 05, 2022 17:28
--- NOTE | 2022-02-05 13:19 | NUR ---
Received order to transfer patient to room 532. Report given to TEENA Rushing.
[2022-02-06 03:00] VITALS: BP 103/74
[2022-02-06 07:00] VITALS: BP 122/91
[2022-02-06] MEDS: GABAPENTIN 100 MG CAPSULE. PO SCH (08:48)
[2022-02-06] MEDS: MULTIVITAMIN with MINERAL TABLET. PO SCH (08:48)
[2022-02-06] MEDS: FUROSEMIDE 40 MG/4 ML VIAL. IVP SCH (08:48)
[2022-02-06] MEDS: THIAMINE 100 MG TABLET. PO SCH (08:48)
[2022-02-06] MEDS: LOSARTAN POTASSIUM 25 MG TABLET. PO SCH (08:48)
[2022-02-06] MEDS: FOLIC ACID 1 MG TABLET. PO SCH (08:48)
[2022-02-06] MEDS: METOPROLOL TART IMMED RELEASE 25 MG TABLET. PO SCH (08:49)
[2022-02-06] MEDS: SPIRONOLACTONE 25 MG TABLET PO SCH (08:51)
[2022-02-06 11:00] VITALS: BP 102/73
--- NOTE | 2022-02-06 11:57 | NUR ---
SS following up with discharge planning. SS reviewed pt chart and discussed with pt RN. Pt is from home and is currently on room air. Cardiology following. Self pay. Med Assist following. Pt positive for Meth and THC. Christoph from PAT team met with pt and provided resources for [facility], [facility], [facility], support groups, and detox programs. SS will continue to follow for discharge planning.
[2022-02-06] MEDS ORDERED: LOSA25TA54 PO (12:07)
[2022-02-06] MEDS ORDERED: SPIR25TA PO (12:07)
--- NOTE | 2022-02-06 12:08 | DISCH ---
DISCHARGE INSTRUCTIONS Condition on Discharge Condition on Discharge: Guarded Activity After Discharge Activity Instructions for Disc: Activity as tolerated Lifting Instructions after Dis: Do not lift >10 pounds Exercise Instruction after Dis: Walk 30 min, 5 x per week Driving Instructions after Dis: Do not drive today Weight Bearing Status after Di: As tolerated Diet after Discharge Diet after Discharge: Cardiac, Regular Follow-Up Follow up with: PCP within 2 weeks of discharge Follow Up With: Addiction clinic and heart failure clinic at [facility] DELMY PINA MD Feb 06, 2022 12:08
--- NOTE | 2022-02-06 12:22 | PDOC ---
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 02/06/22 1222: CARDIO Progress Notes Date and Time Date of Service 02/06/2022 Time of Evaluation 1200 Subjective Subjective: No Chest Pain, No shortness of breath, No Palpitations Vitals Vitals Vital Signs Date Time Temp Pulse Resp B/P (MAP) Pulse Ox O2 Delivery O2 Flow Rate FiO2 02/06/22 11:00 99.0 83 20 102/73 (83) 95 Room Air 99.0 02/06/22 08:00 2.0 Weight Weight [ ] Input and Output Intake and Output Intake and Output 02/06/22 07:00 Intake Total 350 ml Output Total 675 ml Balance -325 ml Intake Oral 350 ml Output Urine Total 675 ml # Voids 1 # Bowel Movements 1 Physical Exam HEENT: Neck Supple W Full Motion Chest: Symmetric LUNGS: Other (diminished) Heart: RRR (SR) Abdomen: Soft N/T Extremities: No Calf Tenderness Neurology: alert, oriented, follow commands Assessment Assessment 1. Toxic Encephalopathy: due to polysubstance abuse, responded with narcan per EMS. mentation back to baseline 2. Polysubstance abuse: including methamphetamine, fentanyl, marijuana and PCP 3. Acute respiratory failure: due to above. compensated 4. HTN: controlled 5. NICM: EF 10% 6. CKD3 7. Acute on chronic systolic/diastolic CHF: clinically compensated 8. Poor compliance Recommendations 1. Continue HF optimization 2. He will need to follow up with [facility] with addiction clinic and HF clinic if he would comply. SS 3. Continue lasix therapy 4. Transfer to tele floor 5. Discussed compliance Justicifation of Admission Dx: Justifications for Admission: Justification of Admission Dx: Yes Sepsis: Infection ETHEL BRIONES MD 02/08/22 0225: CARDIO Progress Notes Plan Plan Late entry for 02/06/22 Pt. seen and examined. Agree with above COMPARATOR OPERATOR note. Supportive care. 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 Feb 06, 2022 12:22 ETHEL BRIONES MD Feb 08, 2022 02:25
--- NOTE | 2022-02-06 12:43 | NUR ---
Patient refuses assistance from PAT team, they left information with him regarding community resources for addiction, patient refuses to wear telemetry.
[2022-02-06 13:25] LABS: CALCIUM 8.5 mg/dL (8.5-10.1); CREATININE 1.6 mg/dL (0.7-1.3); GFR 45.3; POTASSIUM 4.4 mmol/L (3.5-5.1)
--- NOTE | 2022-02-10 15:52 | PDOC3 ---
[facility]-Discharge Summary Date of Admission: Date of Admission: Feb 04, 2022 Date of Discharge: Date of Discharge: Feb 06, 2022 Discharge Diagnosis: Discharge Diagnosis: Narcotic overdose Polysubstance abuse Symptomatic hypotension ANTHONY Acute respiratory failure with hypoxia Acute CHF exacerbation Consults: Consults: Per cardiology: Recommendations 1. Continue HF optimization 2. He will need to follow up with [facility] with addiction clinic and HF clinic if he would comply. SS 3. Continue lasix therapy 4. Transfer to [facility] floor 5. Discussed compliance Hospital Course: Hospital Course: 56-year-old male with a history of heart disease, who presents to the ER as a narcotic overdose. He was apparently found passed out by his roommate, who called EMS when he was unable to arouse the patient. He was given Narcan by EMS, and 2 additional doses of Narcan in the ER. Upon my evaluation he is alert, but somewhat hypotensive. Given concern for his symptomatic hypotension, will admit patient for further observation. 02/05: Patient seen and evaluated bedside. Diaphoretic and complains of shortne ss of breath. He is able to me this morning that he has a history of heart failure and has been without his heart failure medication for some time. Previously prescribed at metoprolol twice daily, losartan, spironolactone, Lasix, and gabapentin for depression. Tells me he takes daily Lasix and gabapentin, last time he took his Lasix was 2 days ago. Will change to inpatient status and order echocardiogram. Consider consulting cardiology. Still denies alcohol use. Discussed with RN. By day of discharge patient was clinically stable. He was ambulating and tolerating diet. Evaluated by cardiology please see their recommendations above. Rest of hospital course was uneventful. Disposition: Disposition/Orders: D/C to Home Activity: Activity: Resume previous activity Diet: Diet: Cardiac Medications: Home Meds Active Scripts Spironolactone (ALDACTONE) 25 Mg Tablet, 25 MG PO DAILY for heart failure for 30 Days, #30 TAB 2 Refills Prov:DELMY PINA MD 02/06/22 Losartan Potassium (LOSARTAN POTASSIUM ) 25 Mg Tablet, 25 MG PO DAILY for blood pressure for 30 Days, #30 TAB 2 Refills Prov:DELMY PINA MD 02/06/22 Reported Medications Metoprolol Tartrate (METOPROLOL TARTRATE) 25 Mg Tablet, 1 TAB PO BID for htn, #1 80 TAB 1 Refill 02/05/22 Furosemide (FUROSEMIDE) 20 Mg Tablet, 1 TAB PO DAILY for htn , #90 TAB 1 Refill 02/05/22 Gabapentin (GABAPENTIN ) 100 Mg Capsule, 100 MG PO TID for depression/ neuropathy pain , CAP 02/05/22 Info (NO KNOWN MEDICATIONS PRIOR TO ADMISSTION) Each, 1 EACH MC 1-2XD for no, EACH 06/05/20 Discontinued Reported Medications Losartan/Hydrochlorothiazide (LOSARTAN-HCTZ 100-12.5 MG TAB) 1 Each Tablet, 1 TAB PO DAILY for htn, #30 TAB 5 Refills 02/05/22 Discontinued Scripts Ibuprofen (IBUPROFEN) 400 Mg Tablet, 400 MG PO PRN Q6HRS PRN for INFLAMMATION, #30 TAB Prov:MERCEDEZ HAMPTON MD 06/07/20 Tramadol Hcl (ULTRAM) 50 Mg Tablet, 1 TAB PO PRN TID PRN for pain MDD 3 Tablet(s), #22 TAB 0 Refills Prov:MERCEDEZ HAMPTON MD 06/07/20 Clindamycin Hcl (CLINDAMYCIN HCL) 300 Mg Capsule, 3 CAP PO TID for hand infection for 7 Days, #63 CAP Prov:MERCEDEZ HAMPTON MD 06/05/20 Scheduled Furosemide (Furosemide), 1 TAB PO DAILY, (Reported) Gabapentin (Gabapentin ), 100 MG PO TID, (Reported) Info (No Known Medications Prior To Admisstion), 1 EACH MC 1-2XD, (Reported) Losartan Potassium (Losartan Potassium ), 25 MG PO DAILY Metoprolol Tartrate (Metoprolol Tartrate), 1 TAB PO BID, (Reported) Spironolactone (Aldactone), 25 MG PO DAILY Discontinued Medications Clindamycin Hcl (Clindamycin Hcl), 3 CAP PO TID Ibuprofen (Ibuprofen), 400 MG PO PRN Q6HRS PRN for INFLAMMATION Losartan/Hydrochlorothiazide (Losartan-Hctz 100-12.5 Mg Tab), 1 TAB PO DAILY, (Reported) Tramadol Hcl (Ultram), 1 TAB PO PRN TID PRN for pain Total Time: Total Time: Total time spent was 39 minutes in preparing scripts, discharge planning with SWI and RN and preparing this discharge summary Patient seen and examined on day of discharge. No acute abnormal findings. Justicifation of Admission Dx: Justifications for Admission: Justification of Admission Dx: Yes Sepsis: Infection DELMY PINA MD Feb 10, 2022 15:52
== END 2022-02-06 15:58 | disposition home or self-care (01) | DRG 917 ==
LOC: ER 04:24 → 4 NORTH 13:59 → ED HOLD 13:59 → 4 NORTH 20:23 → OBSVTOIN 02-05 08:12 → 5 NORTH 02-05 13:32
PROVIDERS: ADMIT Family Medicine; ATTEND Family Medicine
DX: T40.2X1A Poisoning by other opioids, accidental (unintentional), initial encounter (principal); J96.01 Acute respiratory failure with hypoxia; G92.8 Other toxic encephalopathy; I50.43 Acute on chronic combined systolic (congestive) and diastolic (congestive) heart failure; I13.0 Hypertensive heart and chronic kidney disease with heart failure and stage 1 through stage 4 chronic kidney disease, or unspecified chronic kidney disease; N17.9 Acute kidney failure, unspecified; I42.8 Other cardiomyopathies; I95.9 Hypotension, unspecified; F17.210 Nicotine dependence, cigarettes, uncomplicated; F19.10 Other psychoactive substance abuse, uncomplicated; F32.A Depression, unspecified; I25.10 Atherosclerotic heart disease of native coronary artery without angina pectoris; N18.30 Chronic kidney disease, stage 3 unspecified; Z91.14 Patient's other noncompliance with medication regimen; Y92.89 Other specified places as the place of occurrence of the external cause
CPT/HCPCS: 36415; 70450; 71045; 80048; 80307; 82550; 84484; 85027; 93005; 93306; 96361; 96374; 96375; 96376; G0378; G0379; G0480; J1940; J2060; J2310; J2405; J7030; J7040; 99285-25; C8929